=== PATIENT | male | born 1970 | race Two or more races ===

== ENCOUNTER 2021-08-13 16:31 | Emergency (ER) | payer MEDICAID ==
[~2021-08-13] VITALS: Ht 177.8 cm; Wt 109.3 kg
--- NOTE | 2021-08-13 16:50 | NUR ---
PT CAME TO ER C/O "MY R INDEX FINGER IS NUMB" SINCE THIS MORNING. DENIES HX OF CERVICAL SPINE INJURY. PT ALSO REPORTS BILATERAL FEET/ANKLE SWELLING SINCE 2-3 DAYS AGO. DENIES HX OF CARDIAC DISORDERS. HX OF DM FOR 13 YEARS, L VITRECTOMY 9 YEARS AGO. A&OX4, BREAHING EVEN AND UNLABORED, PULSES 1+ BILATERALLY. ABLE TO DISTINGUISH SOFT AND SHARP TOUCH TO R INDEX FINGER. NOTABLE SWELLING IN BILATERAL FEET/ANKLES. STANLEY BETWEEN TOES AND ON L MEDIAL ANKLE. ATTACHED TO MONITOR. Addendum: 08/13/21 at 1717 by RICHARD PTP DENIES SOB, CHEST PAIN
--- NOTE | 2021-08-13 17:16 | NUR ---
RADIOLOGY AT BEDSIDE
--- NOTE | 2021-08-13 17:33 | NUR ---
BLOOD SAMPLE OBTAINED AND SENT TO LAB
[2021-08-13] MEDS ORDERED: INSU100V7 SQ (17:40)
[2021-08-13] MEDS ORDERED: ATOR40TA PO (17:40)
[2021-08-13] MEDS ORDERED: ASPI-1169 PO (17:40)
[2021-08-13] MEDS ORDERED: AMLO1TAB12 PO (17:40)
[2021-08-13] MEDS ORDERED: INSU100I4 SQ (17:40)
[2021-08-13 17:47] LABS: BASOPHILS % (AUTO) 0.4 % (0.0-2.0); EOSINOPHILS % (AUTO) 2.4 % (0.0-6.0); HEMATOCRIT 39 % (39-51); HEMOGLOBIN 13.2 g/dL (13.5-17.5); LYMPHOCYTES # (AUTO) 1.8 K/uL (0.8-4.8); LYMPHOCYTES % (AUTO) 18.1 % (20.0-44.0); MEAN CORPUSCULAR HGB CONC 34 g/dl (31.0-36.0); MEAN CORPUSCULAR VOLUME 85 fL (80-96); MONOCYTES % (AUTO) 9.4 % (2.0-12.0); NEUTROPHILS % (AUTO) 69.7 % (43.0-81.0); PLATELET COUNT (AUTO) 267 K/uL (150-450); RED BLOOD CELL COUNT(AUTO) 4.63 MIL/uL (4.5-6.0); WHITE BLOOD COUNT (AUTO) 10.1 K/uL (4.3-11.0)
--- NOTE | 2021-08-13 17:56 | NUR ---
QUALITY MEASUREMENT SPECIALIST AT BEDSIDE
[2021-08-13 17:58] LABS: CALCIUM, SERUM 8.9 mg/dL (8.5-10.1); CREATININE 1.8 mg/dL (0.6-1.3); POTASSIUM 3.9 mmol/L (3.5-5.1)
[2021-08-13 18:04] LABS: ALBUMIN 2.7 g/dL (3.4-5.0); BILIRUBIN,DIRECT 0.1 mg/dL (0.0-0.2); BILIRUBIN,TOTAL 0.3 mg/dL (0.2-1.0); TOTAL PROTEIN, SERUM 7.5 g/dL (6.4-8.2)
[2021-08-13] MEDS ORDERED: ENOXAPARIN SODIUM 100 MG/ML DISP.SYRIN SQ ONE (18:30)
[2021-08-13] MEDS ORDERED: VANCOMYCIN 1 GM in IV D5W 250 ML IV ONE (18:30)
[2021-08-13] MEDS ORDERED: VANCOMYCIN 1 GM VIAL ONE (18:44)
[2021-08-13] MEDS ORDERED: ASPIRIN EC 81 MG TABLET.DR PO ONE (18:45)
[2021-08-13] MEDS ORDERED: ASPIRIN 81 MG TAB.CHEW PO ONE (19:00)
--- NOTE | 2021-08-13 19:29 | NUR ---
Patient does not wish to proceed with medical care recommended by Dr. Castro. Patient given information related to possible complications, up to and including , which could occur as a result of leaving the hospital at this time. Patient verbalizes understanding of risks involved due to leaving against medical advice. Patient has signed AMA form.
--- NOTE | 2021-08-13 19:29 | NUR ---
PT LEFT AMA DURING ANTIBIOTIC TREATMENT. HALF OF THE 250ML BAG WAS COMPLETED. PAT YAN AWARE.
[2021-08-13 19:46] VITALS: BP 132/73
== END 2021-08-13 19:29 | disposition left against medical advice (07) ==
LOC: ER 16:33
DX: I21.4 Non-ST elevation (NSTEMI) myocardial infarction (principal); M86.9 Osteomyelitis, unspecified; N17.9 Acute kidney failure, unspecified; R60.0 Localized edema; E11.9 Type 2 diabetes mellitus without complications; Z79.899 Other long term (current) drug therapy; Z79.82 Long term (current) use of aspirin; Z79.4 Long term (current) use of insulin
CPT/HCPCS: 36415; 71045; 73630; 80048; 80076; 82962; 83880; 84484; 85025; 87040 ×2; 93005; 93970; 96365; 99285; J3370

== ENCOUNTER 2021-08-14 17:06 | Emergency (ER) | payer MEDICAID ==
[~2021-08-14 17:06] MED LIST: AMLO1TAB12 PO; ASPI-1169 PO; ATOR40TA PO; INSU100I4 SQ; INSU100V7 SQ
--- NOTE | 2021-08-14 17:32 | NUR ---
CALLED TO TRIAGE,NO ANSWER
--- NOTE | 2021-08-14 18:11 | NUR ---
CALLED IN ED WAITING ROOM NO RESPONSE.
--- NOTE | 2021-08-14 19:17 | NUR ---
LEFT ED WITHOUT BEING SEEN
== END 2021-08-14 19:22 | disposition left against medical advice (07) ==
LOC: ER 18:23
DX: Z53.21 Procedure and treatment not carried out due to patient leaving prior to being seen by health care provider (principal)

== ENCOUNTER 2021-08-19 08:26 | Inpatient (IN) | payer SELFPAY ==
[~2021-08-19] VITALS: Ht 170.2 cm; Wt 108.9 kg
--- NOTE | 2021-08-19 08:35 | NUR ---
DR JOHNSON AT BEDSIDE
--- NOTE | 2021-08-19 08:38 | NUR ---
EKG BEING DONE AT BEDSIDE
--- NOTE | 2021-08-19 08:42 | NUR ---
PT CAME TO ER C/O WORSENING BLE SWELLING X 5 DAYS. ADMITS FEVER LAST NIGHT WHICH WAS REDUCED BY ADVIL. DENIES NAUSEA. ADMITS VOMITING AFTER TAKING ADVIL. AAOX4, AMBULATORY, BREATHING EVEN AND UNLABORED, BILATERAL LOWER EXTREMITY SWELLING WITH ERYTHEMA. ON MONITOR. TACHYCARDIC HR 110.
[2021-08-19] MEDS ORDERED: SULF1TAB48 PO (08:58)
[2021-08-19] MEDS ORDERED: PIPERACILLIN /TAZOBACTAM 3.375 G in IV D5W 50 ML IV ONE (09:00)
[2021-08-19] MEDS ORDERED: VANCOMYCIN 1 GM in IV D5W 250 ML IV ONE (09:00)
[2021-08-19 09:17] LABS: CALCIUM, SERUM 8.7 mg/dL (8.5-10.1); CARBON DIOXIDE 25 mmol/L (21-32); CHLORIDE 94 mmol/L (98-107); CREATININE 1.8 mg/dL (0.6-1.3); GLUCOSE 274 mg/dL (74-106); POTASSIUM 3.6 mmol/L (3.5-5.1); SODIUM SERUM 131 mmol/L (136-145); UREA NITROGEN, BLOOD 22 mg/dL (7-18)
--- NOTE | 2021-08-19 09:20 | NUR ---
PT UNABLE TO PROVIDE URINE SAMPLE. WILL TRY TO OBTAIN AGAIN.
--- NOTE | 2021-08-19 09:21 | NUR ---
MOVE SHEET SUBMITTED AND CALLED FOR BED.
[2021-08-19 09:23] LABS: ALANINE AMINOTRANSFERASE 45 U/L (12-78); ALBUMIN 2.6 g/dL (3.4-5.0); ALKALINE PHOSPHATASE 298 U/L (46-116); ASPARTATE AMINOTRANSFERASE 23 U/L (15-37); BILIRUBIN,DIRECT 0.2 mg/dL (0.0-0.2); BILIRUBIN,TOTAL 0.5 mg/dL (0.2-1.0); TOTAL PROTEIN, SERUM 8.7 g/dL (6.4-8.2)
--- NOTE | 2021-08-19 09:24 | NUR ---
RADIOLOGY AT BEDSIDE
[2021-08-19 09:28] LABS: BASOPHILS # (AUTO) 0.1 K/uL (0.0-0.2); BASOPHILS % (AUTO) 0.7 % (0.0-2.0); EOSINOPHILS % (AUTO) 1.3 % (0.0-6.0); HEMATOCRIT 40 % (39-51); HEMOGLOBIN 12.9 g/dL (13.5-17.5); LYMPHOCYTES # (AUTO) 2.4 K/uL (0.8-4.8); LYMPHOCYTES % (AUTO) 13.1 % (20.0-44.0); MEAN CORPUSCULAR HGB CONC 33 g/dl (31.0-36.0); MEAN CORPUSCULAR VOLUME 86 fL (80-96); MONOCYTES % (AUTO) 5.5 % (2.0-12.0); NEUTROPHILS # (AUTO) 14.7 K/uL (1.8-8.9); NEUTROPHILS % (AUTO) 79.4 % (43.0-81.0); PLATELET COUNT (AUTO) 487 K/uL (150-450); RED BLOOD CELL COUNT(AUTO) 4.64 MIL/uL (4.5-6.0); WHITE BLOOD COUNT (AUTO) 18.5 K/uL (4.3-11.0)
--- NOTE | 2021-08-19 09:30 | NUR ---
ABNORMAL LAB LACTIC ACID 2.6. DR JOHNSON AWARE.
--- NOTE | 2021-08-19 10:05 | NUR ---
GLUCOSE 238. NOTIFIED Addendum: 08/19/21 at 1137 by RICHARD CORRECTION: GLUCOSE 283
--- NOTE | 2021-08-19 10:17 | NUR ---
COVID SWAB DONE AND SENT TO LAB
[2021-08-19] MEDS ORDERED: IV NS 0.9% 1,000 ML BAG IV ONE (10:30)
[2021-08-19] MEDS ORDERED: ONDANSETRON HCL/PF 4 MG/2 ML VIAL ONE (10:56)
[2021-08-19] MEDS ORDERED: ONDANSETRON HCL/PF - ER 4 MG/2 ML VIAL IV ONE (11:00)
--- NOTE | 2021-08-19 11:30 | NUR ---
room 308-1
[2021-08-19 11:40] LABS: BILIRUBIN,URINE SMALL (NEGATIVE); COLOR,URINE DARK YELLOW (YELLOW); LEUKOCYTE ESTERASE ,URINE Negative (NEGATIVE); NITRITE, URINE Negative (NEGATIVE); PH,URINE 5.5 (5.0-8.0); PROTEIN,URINE 100 mg/dl (NEGATIVE); UGLUCOSE >=1000 mg/dL (NEGATIVE)
[2021-08-19 11:57] LABS: BACTERIA,URINE Few /HPF (None Seen); WBC,URINE 0-2 /HPF (0-3)
[2021-08-19 12:00] VITALS: BP 146/73
--- NOTE | 2021-08-19 12:00 | NUR ---
Report given to floor LORIE Herrera for continuation of care.
[2021-08-19 12:30] VITALS: BP 146/73
[2021-08-19] MEDS ORDERED: ONDANSETRON HCL/PF 4 MG/2 ML VIAL IVP PRN (12:30)
[2021-08-19] MEDS ORDERED: Z GUARD REMEDY 2 OZ OINT TP PRN (12:30)
[2021-08-19] MEDS ORDERED: MAGNESIUM HYDROXIDE 30 ML UDC PO PRN (12:30)
[2021-08-19] MEDS ORDERED: ZOLPIDEM TARTRATE 5 MG TABLET PO PRN (12:30)
[2021-08-19] MEDS ORDERED: CEFTRIAXONE 1 G in IV D5W 50 ML IV SCH (12:30)
[2021-08-19] MEDS ORDERED: DEXTROSE 50%-WATER 50 ML DISP.SYRIN IV PRN (12:30)
[2021-08-19] MEDS ORDERED: HYDROCODONE/APAP 5/325MG TABLET PO PRN (12:30)
--- NOTE | 2021-08-19 12:30 | NUR ---
m/s criminal profiler: admission admitted this 50 year old male pt from e. with dx: possible left 2nd toe osteomyelitis with poor hygiene to upper and lower ext's. pt is alert and oriented x4 with anxiousness. oriented to room and surroundings. dr. story admitting. orders acknowledged. noted left foot with redness and swelling and left 2nd toe sole with black eschar. for wound consult. per dr. millan no podiatry consult at this time. cn aware. noted with temp of 100.4 and tachycardia at 110. tylenol 650mg po given at 1330. dr. millan made aware and per md to continue to monitor. will continue to monitor.
[2021-08-19] MEDS: ACETAMINOPHEN 325 MG TABLET PO PRN (13:10)
[2021-08-19] MEDS: VALSARTAN 80 MG TABLET PO SCH (13:14)
[2021-08-19] MEDS ORDERED: VANCOMYCIN 1.5 GM in IV D5W 500 ML IV ONE (14:00)
--- NOTE | 2021-08-19 14:00 | NUR ---
m/s port crane operator: notes re check temp 101.1 (o). dr. millan notified and made aware. will continue to monitor.
[2021-08-19 14:16] VITALS: BP 135/66
--- NOTE | 2021-08-19 15:30 | NUR ---
m/s technical sales director: notes re check temp 99.2 (o). no distress noted. will continue to monitor.
[2021-08-19 16:00] VITALS: BP 140/74
[2021-08-19] MEDS: ENOXAPARIN SODIUM 40 MG/0.4 ML DISP.SYRIN SQ SCH (16:27)
--- NOTE | 2021-08-19 16:45 | NUR ---
m/s side stapler: notes pt getting nervous as stated and wants his right ac iv remove. iv removed to rac with tip intact. instructed to call for assistance.
[2021-08-19] MEDS: BLOOD SUGAR DIAGNOSTIC 1 EACH STRIP VI SCH ×2 (17:13→21:43)
[2021-08-19] MEDS: INSULIN REGULAR, HUMAN 100 UNIT/ML 3 ML VIAL SQ PRN (17:24)
--- NOTE | 2021-08-19 18:35 | NUR ---
m/s coal carrier: notes resting quietly in bed with no distress noted. needs attended. call light within reach. will continue to monitor.
--- NOTE | 2021-08-19 19:15 | NUR ---
m/s hospital aide: notes bedside report given to josselin (rn) for continuity of care.
--- NOTE | 2021-08-19 19:30 | NUR ---
MS RN OPENING NOTES PATIENT RESTING IN BED, ALERT/ORIENTED X 4, PT ABLE TO MAKE NEEDS KNOWN. PT STABLE ON RA, NO S/S OF DISTRESS OR SOB NOTED, BREATHING EVEN AND UNLABORED. IV ACCESS ON LEFT AC #20G INTACT AND FLUSHING WELL. NO REPORTS OF PAIN AT THIS TIME. SAFETY MEASURES IN PLACE: CALL LIGHT WITHIN REACH, SIDE RAILS UP X 2, BED LOCKED IN LOW POSITION, BED ALARM ON. WILL CONTINUE TO MONITOR PATIENT
[2021-08-19 20:00] VITALS: BP 131/59
[2021-08-19] MEDS: VANCOMYCIN 0.75 GM in IV D5W 250 ML IV SCH (21:20)
[2021-08-19] MEDS: MAG HYDROX/AL HYDROX/SIMETH 30 ML UDC PO PRN (21:47)
[2021-08-19] MEDS: INSULIN GLARGINE, 100 UNIT/ML CARTRIDGE SQ SCH (21:47)
--- NOTE | 2021-08-19 21:50 | NUR ---
MS RN NOTE PATIENT REPORTING HEART BURN. MAALOX 30 ML PO GIVEN ORDERED. WILL CONTINUE TO MONITOR PATIENT
--- NOTE | 2021-08-19 22:00 | NUR ---
MS RN NOTE PATIENT REPORTING NAUSEA AND EMESIS X 1. ZOFRAN 4 MG IV GIVEN ORDERED. WILL CONTINUE TO MONITOR PATIENT
[2021-08-19] MEDS: *INSULIN REGULAR(HUMULIN R)HUM 100 UNIT/ML VIAL SQ PRN (22:05)
[2021-08-20] MEDS ORDERED: VANCOMYCIN 0.75 GM in IV D5W 250 ML IV SCH (02:00)
--- NOTE | 2021-08-20 06:26 | NUR ---
MS RN CLOSING NOTES PATIENT SLEEPING IN BED, EASILY AWAKENED, ALERT/ORIENTED X 4. PT STABLE ON RA, NO S/S OF DISTRESS OR SOB NOTED, BREATHING EVEN AND UNLABORED. IV ACCESS ON LEFT AC INTACT AND SALINE LOCKED. MEDICATIONS GIVEN ORDERED, PT NEEDS MET THROUGHOUT SHIFT. NO MORE NAUSEA/VOMITING REPORTED THE REST OF SHIFT. SAFETY MEASURES IN PLACE: CALL LIGHT WITHIN REACH, SIDE RAILS UP X 2, BED LOCKED IN LOW POSITION, BED ALARM ON. WILL ENDORSE TO DAY SHIFT NURSE FOR CONTINUITY OF CARE
[2021-08-20 06:38] LABS: BASOPHILS # (AUTO) 0.1 K/uL (0.0-0.2); BASOPHILS % (AUTO) 0.4 % (0.0-2.0); EOSINOPHILS % (AUTO) 1.4 % (0.0-6.0); HEMATOCRIT 33 % (39-51); LYMPHOCYTES # (AUTO) 1.7 K/uL (0.8-4.8); LYMPHOCYTES % (AUTO) 9.9 % (20.0-44.0); MEAN CORPUSCULAR HGB CONC 33 g/dl (31.0-36.0); MEAN CORPUSCULAR VOLUME 85 fL (80-96); MONOCYTES # (AUTO) 1.1 K/uL (0.1-1.30); MONOCYTES % (AUTO) 6.7 % (2.0-12.0); NEUTROPHILS # (AUTO) 13.7 K/uL (1.8-8.9); NEUTROPHILS % (AUTO) 81.6 % (43.0-81.0); PLATELET COUNT (AUTO) 396 K/uL (150-450); RED BLOOD CELL COUNT(AUTO) 3.91 MIL/uL (4.5-6.0); WHITE BLOOD COUNT (AUTO) 16.8 K/uL (4.3-11.0)
[2021-08-20 06:49] LABS: CALCIUM, SERUM 8.1 mg/dL (8.5-10.1); CREATININE 1.8 mg/dL (0.6-1.3); MAGNESIUM 2.1 mg/dL (1.8-2.4); PHOSPHORUS 2.4 mg/dL (2.5-4.9); POTASSIUM 4.2 mmol/L (3.5-5.1)
[2021-08-20] MEDS: BLOOD SUGAR DIAGNOSTIC 1 EACH STRIP VI SCH ×4 (06:52→21:38)
[2021-08-20 06:54] LABS: THYROID STIMULATING HORMONE 0.201 uIU/mL (0.358-3.74)
[2021-08-20] MEDS: INSULIN REGULAR, HUMAN 100 UNIT/ML 3 ML VIAL SQ PRN ×3 (06:55→17:35)
--- NOTE | 2021-08-20 07:30 | NUR ---
received pt. in am alert and oriented x4.no distress.vs stable.
--- NOTE | 2021-08-20 08:26 | NUR ---
WOUND CARE CONSULT: PT PRESENTS WITH LEFT 2ND TOE CRUSTED WOUND, REDNESS AND SWELLING TO FOOT AND CALLUS TO RT GREAT TOE, PRESENT ON ADMISSION. DR CONTRERAS NOTIFIED OF DPM CONSULT REQUEST. PT IS AMBULATORY (VERY SLOW GAIT) AND CONTINENT. MD IN AGREEMENT WITH PLAN OF CARE.
[2021-08-20 08:37] VITALS: BP 136/86
[2021-08-20] MEDS ORDERED: CEFEPIME 1 GM in IV D5W 50 ML IV SCH (09:00)
[2021-08-20] MEDS: PANTOPRAZOLE 40 MG TABLET.DR PO SCH (09:16)
[2021-08-20] MEDS: ATORVASTATIN 40 MG TABLET PO SCH (09:17)
[2021-08-20] MEDS: VALSARTAN 80 MG TABLET PO SCH (09:17)
[2021-08-20] MEDS: ASPIRIN 81 MG TAB.CHEW PO SCH (09:17)
[2021-08-20] MEDS: AMLODIPINE BESYLATE 5 MG TABLET PO SCH (09:18)
[2021-08-20] MEDS: ENOXAPARIN SODIUM 40 MG/0.4 ML DISP.SYRIN SQ SCH (09:22)
[2021-08-20] MEDS: VANCOMYCIN 0.75 GM in IV D5W 250 ML IV SCH ×2 (09:41→21:36)
[2021-08-20] MEDS: CEFEPIME 2 GM in IV D5W 100 ML IV SCH ×2 (11:18→20:27)
--- NOTE | 2021-08-20 12:10 | NUR ---
dr blackmon here and debridement done of lt. ft. culture sent.
--- NOTE | 2021-08-20 12:30 | NUR ---
dr. conley here to see pt.
[2021-08-20] MEDS ORDERED: K PHOS NEUTRAL 250 MG TABLET PO ONE (14:00)
[2021-08-20 16:00] VITALS: BP 154/83
[2021-08-20] MEDS: ACETAMINOPHEN 325 MG TABLET PO PRN (16:30)
--- NOTE | 2021-08-20 16:38 | NUR ---
temp right now on pt. 102.9.orally.given tylenol 650 mg po.call out to [facility] md dr. conley.
--- NOTE | 2021-08-20 17:14 | NUR ---
spoke with dr. conley-aware of fever.no new orders.states id nurse pebbles on the case.
--- NOTE | 2021-08-20 18:23 | NUR ---
rn here to insert picc line.
--- NOTE | 2021-08-20 18:53 | NUR ---
picc line placed rt. upper arm,chest done.picc line rn verified ok to use.
--- NOTE | 2021-08-20 19:30 | NUR ---
MS RN OPENING NOTES PT AWAKE IN BED, ALERT/ORIENTED X 4, PT ABLE TO MAKE NEEDS KNOWN. NO COMPLAINTS OF PAIN AT THIS TIME. RIGHT UPPER ARM PICC LINE INTACT AND FLUSHING WELL. LEFT AC IV ACCESS ALSO INTACT AND SALINE LOCKED. DRESSING ON LEFT FOOT CLEAN, DRY AND INTACT. SAFETY MEASURES IN PLACE: CALL LIGHT WITHIN REACH, SIDE RAILS UP X 2, BED LOCKED IN LOW POSITION, BED ALARM ON. WILL CONTINUE TO MONITOR PATIENT
[2021-08-20 20:00] VITALS: BP 142/89
[2021-08-20] MEDS: MAG HYDROX/AL HYDROX/SIMETH 30 ML UDC PO PRN (20:11)
--- NOTE | 2021-08-20 20:15 | NUR ---
MS RN NOTE PT HAS TEMP OF 99.7. HOWEVER TYLENOL 650 MG Q6H PRN GIVEN 3 HOURS AGO. PLACED COOL CLOTHS ON PATIENT AND REMOVED BLANKETS. PT ALSO REPORTING HEART BURN, MAALOX GIVEN ORDERED. WILL CONTINUE TO MONITOR PATIENT
[2021-08-20] MEDS: INSULIN GLARGINE, 100 UNIT/ML CARTRIDGE SQ SCH (21:38)
[2021-08-20] MEDS: *INSULIN REGULAR(HUMULIN R)HUM 100 UNIT/ML VIAL SQ PRN (21:41)
--- NOTE | 2021-08-21 06:35 | NUR ---
MS RN CLOSING NOTES PATIENT SLEEPING IN BED, EASILY AWAKENED, ALERT/ORIENTED X 4. PT STABLE ON RA, NO S/S OF DISTRESS OR SOB NOTED, BREATHING EVEN AND UNLABORED. WILL PICC LINE INTACT AND SALINE LOCKED. MEDICATIONS GIVEN ORDERED, PT NEEDS MET THROUGHOUT SHIFT. NO SIGNIFICANT CHANGES THROUGHOUT SHIFT. PT STATED HE WANTED TO SPEAK TO CM REGARDING DISCHARGE PLANNING. SAFETY MEASURES IN PLACE: CALL LIGHT WITHIN REACH, SIDE RAILS UP X 2, BED LOCKED IN LOW POSITION, BED ALARM ON. WILL ENDORSE TO DAY SHIFT NURSE FOR CONTINUITY OF CARE
[2021-08-21 06:55] LABS: CALCIUM, SERUM 8.1 mg/dL (8.5-10.1); CREATININE 1.7 mg/dL (0.6-1.3); PHOSPHORUS 2.9 mg/dL (2.5-4.9); POTASSIUM 3.8 mmol/L (3.5-5.1)
[2021-08-21] MEDS: BLOOD SUGAR DIAGNOSTIC 1 EACH STRIP VI SCH ×4 (06:56→21:51)
[2021-08-21] MEDS: INSULIN REGULAR, HUMAN 100 UNIT/ML 3 ML VIAL SQ PRN ×3 (06:56→17:12)
--- NOTE | 2021-08-21 07:30 | NUR ---
MS RN OPENING NOTES PT AWAKE IN BED. A/O X 4. PT STABLE ON ROOM AIR. NO SOB OR S/S OF RESPIRATORY DISTRESS. RIGHT UPPER ARM PICC LINE INTACT AND PATENT. LEFT AC IV ACCESS ALSO INTACT AND SALINE LOCKED. DRESSING ON LEFT FOOT CLEAN, DRY AND INTACT. SAFETY MEASURES MAINTAINED. CALL LIGHT AND TABLE WITHIN REACH, SIDE RAILS UP X 2, BED LOCKED IN LOWEST POSITION, BED ALARM ON. WILL CONTINUE WITH PLAN OF CARE.
[2021-08-21 08:00] VITALS: BP 157/80
[2021-08-21 08:11] LABS: BASOPHILS # (AUTO) 0.2 K/uL (0.0-0.2); EOSINOPHILS % (AUTO) 2.3 % (0.0-6.0); HEMATOCRIT 33 % (39-51); HEMOGLOBIN 10.7 g/dL (13.5-17.5); LYMPHOCYTES # (AUTO) 2.4 K/uL (0.8-4.8); LYMPHOCYTES % (AUTO) 14.8 % (20.0-44.0); MEAN CORPUSCULAR HGB CONC 33 g/dl (31.0-36.0); MEAN CORPUSCULAR VOLUME 85 fL (80-96); MONOCYTES # (AUTO) 1.5 K/uL (0.1-1.30); MONOCYTES % (AUTO) 8.9 % (2.0-12.0); NEUTROPHILS # (AUTO) 11.9 K/uL (1.8-8.9); PLATELET COUNT (AUTO) 395 K/uL (150-450); RED BLOOD CELL COUNT(AUTO) 3.84 MIL/uL (4.5-6.0); WHITE BLOOD COUNT (AUTO) 16.4 K/uL (4.3-11.0)
[2021-08-21] MEDS: ASPIRIN 81 MG TAB.CHEW PO SCH (08:12)
[2021-08-21] MEDS: PANTOPRAZOLE 40 MG TABLET.DR PO SCH (08:18)
[2021-08-21] MEDS: ATORVASTATIN 40 MG TABLET PO SCH (08:20)
[2021-08-21] MEDS: AMLODIPINE BESYLATE 5 MG TABLET PO SCH (08:20)
[2021-08-21] MEDS: ENOXAPARIN SODIUM 40 MG/0.4 ML DISP.SYRIN SQ SCH (08:20)
[2021-08-21] MEDS: VALSARTAN 80 MG TABLET PO SCH (08:20)
[2021-08-21] MEDS: CEFEPIME 2 GM in IV D5W 100 ML IV SCH ×2 (08:21→20:55)
[2021-08-21] MEDS: INSULIN GLARGINE, 100 UNIT/ML CARTRIDGE SQ SCH ×2 (08:24→21:50)
[2021-08-21] MEDS: VANCOMYCIN 0.75 GM in IV D5W 250 ML IV SCH ×2 (09:24→21:49)
[2021-08-21] MEDS ORDERED: IV NS 0.9% 250 ML IV ONE (13:39)
[2021-08-21] MEDS ORDERED: IOHEXOL-350 100 ML VIAL IV ONE (13:39)
[2021-08-21 16:00] VITALS: BP 142/74
--- NOTE | 2021-08-21 18:21 | NUR ---
MS RN CLOSING NOTES PT AWAKE IN BED. A/O X 4. PT STABLE ON ROOM AIR. NO SOB OR S/S OF RESPIRATORY DISTRESS. RIGHT UPPER ARM PICC LINE INTACT AND PATENT. LEFT AC IV ACCESS ALSO INTACT AND SALINE LOCKED. DRESSING ON LEFT FOOT CLEAN, DRY AND INTACT. ALL NEEDS MET AT THIS TIME. SAFETY MEASURES MAINTAINED AT ALL TIMES. CALL LIGHT AND TABLE WITHIN REACH, SIDE RAILS UP X 2, BED LOCKED IN LOWEST POSITION, BED ALARM ON. WILL ENDORSE TO ONCOMING NURSE FOR YONATAN.
--- NOTE | 2021-08-21 19:30 | NUR ---
MS RN OPENING NOTES PATIENT AWAKE IN BED, ALERT/ORIENTED X 4, PT ABLE TO MAKE NEEDS KNOWN. PT STABLE ON RA, NO S/S OF DISTRESS OR SOB NOTED, BREATHING EVEN AND UNLABORED. PT DENIES PAIN AT THIS TIME. DRESSING ON LEFT FOOT CLEAN, DRY AN INTACT. WILL PICC LINE INTACT AND FLUSHING WELL, SALINE LOCKED. SAFETY MEASURES IN PLACE: CALL LIGHT WITHIN REACH, SIDE RAILS UP X 2, BED LOCKED IN LOW POSITION, BED ALARM ON. WILL CONTINUE TO MONITOR PATIENT
[2021-08-21] MEDS: ACETAMINOPHEN 325 MG TABLET PO PRN (20:55)
--- NOTE | 2021-08-21 20:55 | NUR ---
MS RN NOTE PATIENT HAS TEMP OF 99.0. TYLENOL 650 MG GIVEN. WILL CONTINUE TO MONITOR PATIENT
[2021-08-21] MEDS: *INSULIN REGULAR(HUMULIN R)HUM 100 UNIT/ML VIAL SQ PRN (21:52)
[2021-08-22] MEDS: BLOOD SUGAR DIAGNOSTIC 1 EACH STRIP VI SCH ×4 (06:32→21:53)
[2021-08-22] MEDS: INSULIN REGULAR, HUMAN 100 UNIT/ML 3 ML VIAL SQ PRN ×3 (06:33→16:34)
--- NOTE | 2021-08-22 06:36 | NUR ---
MS RN CLOSING NOTES PATIENT SLEEPING IN BED, EASILY AWAKENED, ALERT/ORIENTED X 4. PT STABLE ON RA, NO S/S OF DISTRESS OR SOB NOTED, BREATHING EVEN AND UNLABORED. WILL PICC LINE INTACT AND SALINE LOCKED. MEDICATIONS GIVEN ORDERED, PT NEEDS MET THROUGHOUT SHIFT. NO SIGNIFICANT CHANGES THROUGHOUT SHIFT. WOUND CARE PERFORMED THIS AM. SAFETY MEASURES IN PLACE: CALL LIGHT WITHIN REACH, SIDE RAILS UP X 2, BED LOCKED IN LOW POSITION, BED ALARM ON. WILL ENDORSE TO DAY SHIFT NURSE FOR CONTINUITY OF CARE
--- NOTE | 2021-08-22 07:18 | NUR ---
MS RN OPENING NOTES RECEIVED PATIENT AWAKE IN BED, ALERT/ORIENTED X 4, PT ABLE TO MAKE NEEDS KNOWN. PT IS BREATHING EVENLY AND NONLABORED STABLE ON RA, NO S/S OF DISTRESS OR SOB NOTED PT DENIES PAIN AT THIS TIME. DRESSING ON LEFT FOOT CLEAN, DRY AN INTACT. WILL PICC LINE INTACT AND FLUSHING WELL, SALINE LOCKED. SAFETY MEASURES IN PLACE: CALL LIGHT WITHIN REACH, SIDE RAILS UP X 2, BED LOCKED IN LOW POSITION, BED ALARM ON. WILL CONTINUE TO MONITOR
[2021-08-22 07:30] LABS: ALBUMIN 1.8 g/dL (3.4-5.0); BILIRUBIN,TOTAL 0.4 mg/dL (0.2-1.0); CALCIUM, SERUM 7.8 mg/dL (8.5-10.1); CREATININE 1.7 mg/dL (0.6-1.3)
[2021-08-22 07:39] LABS: BASOPHILS # (AUTO) 0.1 K/uL (0.0-0.2); BASOPHILS % (AUTO) 0.4 % (0.0-2.0); EOSINOPHILS % (AUTO) 3.7 % (0.0-6.0); HEMATOCRIT 34 % (39-51); LYMPHOCYTES % (AUTO) 15.5 % (20.0-44.0); MEAN CORPUSCULAR HGB CONC 33 g/dl (31.0-36.0); MEAN CORPUSCULAR VOLUME 85 fL (80-96); MONOCYTES % (AUTO) 7.5 % (2.0-12.0); NEUTROPHILS # (AUTO) 9.3 K/uL (1.8-8.9); NEUTROPHILS % (AUTO) 72.9 % (43.0-81.0); PLATELET COUNT (AUTO) 405 K/uL (150-450); RED BLOOD CELL COUNT(AUTO) 3.94 MIL/uL (4.5-6.0); WHITE BLOOD COUNT (AUTO) 12.7 K/uL (4.3-11.0)
[2021-08-22 08:00] VITALS: BP 141/66
[2021-08-22] MEDS: MAG HYDROX/AL HYDROX/SIMETH 30 ML UDC PO PRN (08:01)
[2021-08-22] MEDS: PANTOPRAZOLE 40 MG TABLET.DR PO SCH (08:01)
[2021-08-22] MEDS: ASPIRIN 81 MG TAB.CHEW PO SCH (08:01)
[2021-08-22] MEDS: ATORVASTATIN 40 MG TABLET PO SCH (08:01)
[2021-08-22] MEDS: CEFEPIME 2 GM in IV D5W 100 ML IV SCH ×2 (08:01→21:33)
[2021-08-22] MEDS: AMLODIPINE BESYLATE 5 MG TABLET PO SCH (08:01)
[2021-08-22] MEDS: VALSARTAN 80 MG TABLET PO SCH (08:02)
[2021-08-22] MEDS: INSULIN GLARGINE, 100 UNIT/ML CARTRIDGE SQ SCH (08:04)
[2021-08-22] MEDS: ENOXAPARIN SODIUM 40 MG/0.4 ML DISP.SYRIN SQ SCH (08:04)
[2021-08-22] MEDS ORDERED: VALSARTAN 80 MG TABLET PO SCH (09:00)
[2021-08-22] MEDS ORDERED: INSULIN GLARGINE, 100 UNIT/ML CARTRIDGE SQ SCH ×2 (09:00→21:00)
[2021-08-22] MEDS: VANCOMYCIN 0.75 GM in IV D5W 250 ML IV SCH ×2 (09:03→22:22)
[2021-08-22] MEDS ORDERED: VALSARTAN 80 MG TABLET PO ONE (09:30)
[2021-08-22] MEDS ORDERED: INSULIN GLARGINE, 100 UNIT/ML CARTRIDGE SQ ONE (09:30)
[2021-08-22 16:00] VITALS: BP 144/75
--- NOTE | 2021-08-22 18:34 | NUR ---
MS RN CLOSING NOTES PATIENT AWAKE IN BED, ALERT/ORIENTED X 4, PT ABLE TO MAKE NEEDS KNOWN. PT IS BREATHING EVENLY AND NONLABORED STABLE ON RA, NO S/S OF DISTRESS OR SOB NOTED PT DENIES PAIN AT THIS TIME. DRESSING ON LEFT FOOT CLEAN, DRY AN INTACT. WOUND CARE PERFORMED DURING SHIFT. WILL PICC LINE INTACT AND FLUSHING WELL, SALINE LOCKED. ALL MEDICATIONS GIVEN ORDERED. SAFETY MEASURES IN PLACE: CALL LIGHT WITHIN REACH, SIDE RAILS UP X 2, BED LOCKED IN LOW POSITION, BED ALARM ON. WILL ENDORSE TO ONCOMING SHIFT
--- NOTE | 2021-08-22 19:15 | NUR ---
NO DRESSING ON THE LEFT FOOT, ON THE FLOOR. WILL COVER FOOT A NEW DRESSING.
--- NOTE | 2021-08-22 19:15 | NUR ---
MS RN OPENING NOTES: RECEIVED PATIENT IN BED AWAKE, A/O X4. NO S/S OF DISTRESS NOTED. NO COMPLAIN OF PAIN. CALL LIGHT WITHIN REACH. BED IN LOWEST AND LOCKED POSITION.
[2021-08-22 20:00] VITALS: BP 151/68
[2021-08-22] MEDS: *INSULIN REGULAR(HUMULIN R)HUM 100 UNIT/ML VIAL SQ PRN (21:59)
[2021-08-23] MEDS: INSULIN REGULAR, HUMAN 100 UNIT/ML 3 ML VIAL SQ PRN ×2 (06:40→11:07)
[2021-08-23 06:58] LABS: ALBUMIN 1.8 g/dL (3.4-5.0); BILIRUBIN,TOTAL 0.3 mg/dL (0.2-1.0); CALCIUM, SERUM 8.1 mg/dL (8.5-10.1); CREATININE 2.2 mg/dL (0.6-1.3); POTASSIUM 4.1 mmol/L (3.5-5.1); TOTAL PROTEIN, SERUM 6.9 g/dL (6.4-8.2)
[2021-08-23 07:01] LABS: BASOPHILS % (AUTO) 0.4 % (0.0-2.0); EOSINOPHILS % (AUTO) 3.7 % (0.0-6.0); HEMATOCRIT 33 % (39-51); HEMOGLOBIN 10.7 g/dL (13.5-17.5); LYMPHOCYTES # (AUTO) 1.8 K/uL (0.8-4.8); MEAN CORPUSCULAR HGB CONC 33 g/dl (31.0-36.0); MEAN CORPUSCULAR VOLUME 84 fL (80-96); MONOCYTES # (AUTO) 0.8 K/uL (0.1-1.30); MONOCYTES % (AUTO) 7.2 % (2.0-12.0); NEUTROPHILS # (AUTO) 8.4 K/uL (1.8-8.9); NEUTROPHILS % (AUTO) 72.7 % (43.0-81.0); PLATELET COUNT (AUTO) 403 K/uL (150-450); RED BLOOD CELL COUNT(AUTO) 3.88 MIL/uL (4.5-6.0); WHITE BLOOD COUNT (AUTO) 11.5 K/uL (4.3-11.0)
[2021-08-23 07:03] LABS: CALCIUM, SERUM 8.3 mg/dL (8.5-10.1); CREATININE 2.2 mg/dL (0.6-1.3); MAGNESIUM 2.4 mg/dL (1.8-2.4); PHOSPHORUS 3.3 mg/dL (2.5-4.9)
[2021-08-23] MEDS: BLOOD SUGAR DIAGNOSTIC 1 EACH STRIP VI SCH ×4 (07:30→21:32)
--- NOTE | 2021-08-23 07:42 | NUR ---
RN OPENING NOTE RECEIVED PATIENT SITTING IN THE CHAIR. A/O X4. ABLE TO MAKE NEEDS KNOWN. ON ROOM AIR, NO SOB NOTED. IN NO APPRENT DISTRESS. IV ACCESS ON WILL PICC LINE, INTACT AND PATENT. SAFETY MEASURES MAINTAINED. BED IN LOWEST POSITION, BRAKES LOCKED. SIDE RAILS UP X2. CALL LIGHT WITHIN REACH. WILL CONTINUE PLAN OF CARE.
[2021-08-23 08:00] VITALS: BP 144/75
[2021-08-23] MEDS: CEFEPIME 2 GM in IV D5W 100 ML IV SCH ×2 (08:24→21:22)
[2021-08-23] MEDS: VANCOMYCIN 0.75 GM in IV D5W 250 ML IV SCH (08:24)
[2021-08-23] MEDS: ATORVASTATIN 40 MG TABLET PO SCH (08:25)
[2021-08-23] MEDS: ASPIRIN 81 MG TAB.CHEW PO SCH (08:25)
[2021-08-23] MEDS: PANTOPRAZOLE 40 MG TABLET.DR PO SCH (08:25)
[2021-08-23] MEDS: VALSARTAN 80 MG TABLET PO SCH (08:26)
[2021-08-23] MEDS: ENOXAPARIN SODIUM 40 MG/0.4 ML DISP.SYRIN SQ SCH (08:27)
[2021-08-23] MEDS: AMLODIPINE BESYLATE 5 MG TABLET PO SCH (08:30)
[2021-08-23] MEDS: INSULIN GLARGINE, 100 UNIT/ML CARTRIDGE SQ SCH ×2 (08:31→21:32)
[2021-08-23 16:00] VITALS: BP 151/91
[2021-08-23] MEDS: *INSULIN REGULAR(HUMULIN R)HUM 100 UNIT/ML VIAL SQ PRN ×2 (17:07→21:28)
--- NOTE | 2021-08-23 18:23 | NUR ---
RN CLOSING NOTE PATIENT SITTING IN THE CHAIR. ON ROOM AIR, DENIES SOB. IN NO APPARENT DISTRESS. IV ACCESS ON WILL PICC LINE, INTACT AND PATENT. DUE MEDS GIVEN ORDERED. ALL NEEDS HAVE BEEN MET AND ATTENDED. SAFETY MEASURES MAINTAINED. BED IN LOWEST POSITION, BRAKES LOCKED. SIDE RAILS UP X2. KEPT CALL LIGHT WITHIN REACH. WILL ENDORSE CONTINUITY OF CARE TO ONCOMING SHIFT.
--- NOTE | 2021-08-23 19:10 | NUR ---
MS RN OPENING NOTES: RECEIVED PATIENT SITTING IN THE CHAIR, AWAKE, A/O X4. NO S/S OF DISTRESS NOTED. NO COMPLAIN OF PAIN. CALL LIGHT WITHIN REACH. BED IN LOWEST AND LOCKED POSITION. AMBULATORY, STEADY GAIT. DRESSING IS INTACT.
[2021-08-23 20:22] VITALS: BP 155/84
[2021-08-24] MEDS: INSULIN REGULAR, HUMAN 100 UNIT/ML 3 ML VIAL SQ PRN ×3 (06:44→17:36)
[2021-08-24 08:00] VITALS: BP 157/81
[2021-08-24 08:28] LABS: BASOPHILS # (AUTO) 0.1 K/uL (0.0-0.2); HEMATOCRIT 36 % (39-51); HEMOGLOBIN 11.9 g/dL (13.5-17.5); LYMPHOCYTES # (AUTO) 2.2 K/uL (0.8-4.8); LYMPHOCYTES % (AUTO) 17.8 % (20.0-44.0); MEAN CORPUSCULAR HGB CONC 33 g/dl (31.0-36.0); MEAN CORPUSCULAR VOLUME 86 fL (80-96); MONOCYTES # (AUTO) 0.7 K/uL (0.1-1.30); MONOCYTES % (AUTO) 5.5 % (2.0-12.0); NEUTROPHILS % (AUTO) 72.7 % (43.0-81.0); PLATELET COUNT (AUTO) 452 K/uL (150-450); RED BLOOD CELL COUNT(AUTO) 4.24 MIL/uL (4.5-6.0); WHITE BLOOD COUNT (AUTO) 12.4 K/uL (4.3-11.0)
[2021-08-24 08:41] LABS: ALBUMIN 2.1 g/dL (3.4-5.0); BILIRUBIN,TOTAL 0.4 mg/dL (0.2-1.0); CALCIUM, SERUM 8.4 mg/dL (8.5-10.1); CREATININE 2.1 mg/dL (0.6-1.3); POTASSIUM 4.2 mmol/L (3.5-5.1)
[2021-08-24] MEDS: BLOOD SUGAR DIAGNOSTIC 1 EACH STRIP VI SCH ×4 (10:14→21:03)
[2021-08-24] MEDS: INSULIN GLARGINE, 100 UNIT/ML CARTRIDGE SQ SCH ×2 (10:26→21:14)
[2021-08-24] MEDS: VANCOMYCIN 0.75 GM in IV D5W 250 ML IV SCH (10:39)
[2021-08-24] MEDS: ASPIRIN 81 MG TAB.CHEW PO SCH (10:39)
[2021-08-24] MEDS: VALSARTAN 80 MG TABLET PO SCH (10:41)
[2021-08-24] MEDS: AMLODIPINE BESYLATE 5 MG TABLET PO SCH (10:42)
[2021-08-24] MEDS: ATORVASTATIN 40 MG TABLET PO SCH (10:43)
[2021-08-24] MEDS: ENOXAPARIN SODIUM 40 MG/0.4 ML DISP.SYRIN SQ SCH (10:45)
[2021-08-24] MEDS: PANTOPRAZOLE 40 MG TABLET.DR PO SCH (11:04)
[2021-08-24] MEDS: CEFEPIME 2 GM in IV D5W 100 ML IV SCH ×2 (12:35→20:57)
[2021-08-24 16:00] VITALS: BP 140/72
--- NOTE | 2021-08-24 18:00 | NUR ---
pleasant,cooperative,med compliant,no c/o pain.wd. care done on lt. foot.
[2021-08-24 20:00] VITALS: BP 149/79
[2021-08-24] MEDS: *INSULIN REGULAR(HUMULIN R)HUM 100 UNIT/ML VIAL SQ PRN (21:11)
--- NOTE | 2021-08-25 05:53 | NUR ---
WOUND TREATMENT ON THE LEFT TOE- DONE.
[2021-08-25 06:14] LABS: BASOPHILS # (AUTO) 0.1 K/uL (0.0-0.2); BASOPHILS % (AUTO) 0.6 % (0.0-2.0); EOSINOPHILS % (AUTO) 3.6 % (0.0-6.0); HEMATOCRIT 34 % (39-51); HEMOGLOBIN 11.1 g/dL (13.5-17.5); LYMPHOCYTES # (AUTO) 1.9 K/uL (0.8-4.8); LYMPHOCYTES % (AUTO) 18.5 % (20.0-44.0); MEAN CORPUSCULAR HGB CONC 33 g/dl (31.0-36.0); MEAN CORPUSCULAR VOLUME 86 fL (80-96); MONOCYTES # (AUTO) 0.7 K/uL (0.1-1.30); MONOCYTES % (AUTO) 6.6 % (2.0-12.0); NEUTROPHILS # (AUTO) 7.2 K/uL (1.8-8.9); NEUTROPHILS % (AUTO) 70.7 % (43.0-81.0); PLATELET COUNT (AUTO) 433 K/uL (150-450); RED BLOOD CELL COUNT(AUTO) 3.94 MIL/uL (4.5-6.0); WHITE BLOOD COUNT (AUTO) 10.1 K/uL (4.3-11.0)
[2021-08-25] MEDS: BLOOD SUGAR DIAGNOSTIC 1 EACH STRIP VI SCH ×4 (06:34→22:03)
[2021-08-25] MEDS: INSULIN REGULAR, HUMAN 100 UNIT/ML 3 ML VIAL SQ PRN ×3 (06:41→17:34)
[2021-08-25 06:43] LABS: ALBUMIN 1.9 g/dL (3.4-5.0); BILIRUBIN,TOTAL 0.4 mg/dL (0.2-1.0); CALCIUM, SERUM 8.4 mg/dL (8.5-10.1); CREATININE 1.7 mg/dL (0.6-1.3); POTASSIUM 3.9 mmol/L (3.5-5.1); TOTAL PROTEIN, SERUM 7.5 g/dL (6.4-8.2)
--- NOTE | 2021-08-25 07:22 | NUR ---
RN OPENING NOTE RECEIVED PATIENT SLEEPING IN BED, EASILY AWAKENED. A/O X4. ON ROOM AIR, TOLERATING WELL. DENIES SOB. IN NO APPARENT DISTRESS. IV ACCESS ON WILL PICC LINE, INTACT AND PATENT. ABLE TO MAKE NEEDS KNOWN. SAFETY MEASURES MAINTAINED. BED IN LOWEST POSITION, BRAKES LOCKED. SIDE RAILS UP X2. CALL LIGHT WITHIN REACH. WILL CONTINUE PLAN OF CARE.
[2021-08-25 08:00] VITALS: BP 152/77
[2021-08-25] MEDS: ASPIRIN 81 MG TAB.CHEW PO SCH (08:36)
[2021-08-25] MEDS: VANCOMYCIN 0.75 GM in IV D5W 250 ML IV SCH (08:36)
[2021-08-25] MEDS: CEFEPIME 2 GM in IV D5W 100 ML IV SCH ×2 (08:36→21:25)
[2021-08-25] MEDS: AMLODIPINE BESYLATE 5 MG TABLET PO SCH (08:37)
[2021-08-25] MEDS: PANTOPRAZOLE 40 MG TABLET.DR PO SCH (08:37)
[2021-08-25] MEDS: ATORVASTATIN 40 MG TABLET PO SCH (08:37)
[2021-08-25] MEDS: VALSARTAN 80 MG TABLET PO SCH (08:37)
[2021-08-25] MEDS: ENOXAPARIN SODIUM 40 MG/0.4 ML DISP.SYRIN SQ SCH (08:39)
[2021-08-25] MEDS: INSULIN GLARGINE, 100 UNIT/ML CARTRIDGE SQ SCH ×2 (08:40→22:03)
--- NOTE | 2021-08-25 12:40 | NUR ---
RN NOTE RECEIVED A TELEPHONE ORDER FROM DR PETERSON. HIS ORDER WAS TO PREPARE A CONSENT FOR AORTOGRAM WITH RUN-OFF, POSSIBLE ANGIOPLASTY AND STENT PLACEMENT. TYPE AND SCREEN. KEEP THE PT ON NPO POST MIDNIGHT. BMP FOR TOMORROW MORNING. 0.9 NS TO RUN FOR 75 ML/HR. REPEAT ORDERS AND CARRIED OUT.
[2021-08-25] MEDS: IV NS 0.9% 1,000 ML IV PRN (14:16)
[2021-08-25 16:00] VITALS: BP 140/78
--- NOTE | 2021-08-25 18:43 | NUR ---
RN CLOSING NOTE PATIENT RESTING IN BED, A/O X4. ON ROOM AIR, TOLERATING WELL. DENIES SOB. IN NO APPARENT DISTRESS. IV ACCESS ON WILL PICC LINE, NS RUNNING AT 75 ML/HR, INTACT AND PATENT. DUE MEDS GIVEN ORDERED. ALL NEEDS HAVE BEEN MET AND ATTENDED. SAFETY MEASURES MAINTAINED. BED IN LOWEST POSITION, BRAKES LOCKED. SIDE RAILS UP X2. KEPT CALL LIGHT WITHIN REACH. WILL ENDORSE CONTINUITY OF CARE TO ONCOMING SHIFT.
--- NOTE | 2021-08-25 19:30 | NUR ---
MS RN NOTES RECEIVED ON BED A/O X4,BREATHING REGULAR,NOT IN ANY FORM OF DISTRESS,CONTINENT.BRP,AMBULATORY,IVF N AT 75ML/HR RATE INFUSING WELL ON WILL PICC LINE VIA IV PUMP.INSTRUCTED NPO,GOING FOR AORTOGRAM WITH RUNOFF,POSSIBLE,ANGIOPLASTY WITH STENT PLACEMENT BY DR PETERSON IN THE MORNING,CONSENT ON CHART.NOTED LEFT 2ND TOE DIABETIC ULCER,ABLE TO WALK.MONITOR FOR PAIN,CALL IN REACH,NEEDS ANTICIPATED.
[2021-08-25 20:00] VITALS: BP 144/84
[2021-08-25] MEDS: *INSULIN REGULAR(HUMULIN R)HUM 100 UNIT/ML VIAL SQ PRN (22:05)
--- NOTE | 2021-08-26 | NUR ---
MS RN NOTES STARTED NPO POST MIDNIGHT FOR THE PROCEDURE
--- NOTE | 2021-08-26 02:32 | NUR ---
MS MELO NOTES PAIN MANAGEMENT C/O ABDOMINAL PAIN 05/07 ON PAIN SCALE,MORPHINE 2MG IV GIVEN ORDERED. Addendum: 08/26/21 at 0248 by JAY BRANDON RN WRONG ENTRY OF NOTES.NOT FOR THIS PATIENT.
[2021-08-26] MEDS: BLOOD SUGAR DIAGNOSTIC 1 EACH STRIP VI SCH ×4 (05:29→22:08)
--- NOTE | 2021-08-26 05:30 | NUR ---
MS RN NOTES ACCU-CHECK BLOOD SUGAR CHECK 238,HUMULIN R 6 UNITS HELD,GOING FOR AORTOGRAM.
[2021-08-26] MEDS: INSULIN REGULAR, HUMAN 100 UNIT/ML 3 ML VIAL SQ PRN ×3 (05:37→17:15)
[2021-08-26 06:25] LABS: BASOPHILS # (AUTO) 0.1 K/uL (0.0-0.2); BASOPHILS % (AUTO) 0.9 % (0.0-2.0); EOSINOPHILS % (AUTO) 3.1 % (0.0-6.0); HEMATOCRIT 33 % (39-51); HEMOGLOBIN 11.2 g/dL (13.5-17.5); LYMPHOCYTES # (AUTO) 1.8 K/uL (0.8-4.8); LYMPHOCYTES % (AUTO) 18.3 % (20.0-44.0); MEAN CORPUSCULAR HGB CONC 34 g/dl (31.0-36.0); MEAN CORPUSCULAR VOLUME 85 fL (80-96); MONOCYTES # (AUTO) 0.7 K/uL (0.1-1.30); NEUTROPHILS # (AUTO) 7.1 K/uL (1.8-8.9); NEUTROPHILS % (AUTO) 70.7 % (43.0-81.0); PLATELET COUNT (AUTO) 435 K/uL (150-450); RED BLOOD CELL COUNT(AUTO) 3.92 MIL/uL (4.5-6.0)
[2021-08-26] MEDS ORDERED: IV NS 0.9% 1,000 ML ONE (06:35)
[2021-08-26] MEDS ORDERED: IODIXANOL 150 ML IV ONE (06:35)
[2021-08-26] MEDS ORDERED: MIDAZOLAM HCL 2 MG/2ML VIAL ONE (06:36)
[2021-08-26] MEDS ORDERED: FENTANYL PF 100MCG/2ML AMPUL ONE (06:36)
[2021-08-26 07:12] LABS: BILIRUBIN,TOTAL 0.3 mg/dL (0.2-1.0); CALCIUM, SERUM 8.1 mg/dL (8.5-10.1); CREATININE 1.5 mg/dL (0.6-1.3); POTASSIUM 4.4 mmol/L (3.5-5.1); TOTAL PROTEIN, SERUM 7.4 g/dL (6.4-8.2)
[2021-08-26] MEDS ORDERED: LIDOCAINE HCL/MPF 1% 30 ML VIAL IJ ONE (07:19)
--- NOTE | 2021-08-26 08:35 | NUR ---
tele painter helper: notes received pt from lab tester with dx: s/p right femoral access with sono, abdominal aortogram with supervision and interpretation. dressing to right femoral in place with no bleeding noted with palpable pulse. on bedrest for 6 hours and may elevate hob to 30 degrees after 3 hours, pt verbalized understanding. place pt on tele=[id number]'s. instructed to call for assistance. will continue to monitor.
[2021-08-26 08:40] VITALS: BP 141/73
[2021-08-26] MEDS: CEFEPIME 2 GM in IV D5W 100 ML IV SCH ×2 (09:08→21:37)
[2021-08-26] MEDS: ATORVASTATIN 40 MG TABLET PO SCH (09:15)
[2021-08-26] MEDS: AMLODIPINE BESYLATE 5 MG TABLET PO SCH (09:15)
[2021-08-26] MEDS: CARVEDILOL 6.25 MG TABLET PO SCH ×2 (09:15→17:13)
[2021-08-26] MEDS: ASPIRIN 81 MG TAB.CHEW PO SCH (09:15)
[2021-08-26] MEDS: PANTOPRAZOLE 40 MG TABLET.DR PO SCH (09:16)
[2021-08-26] MEDS: VALSARTAN 80 MG TABLET PO SCH (09:16)
[2021-08-26] MEDS: INSULIN GLARGINE, 100 UNIT/ML CARTRIDGE SQ SCH ×2 (09:29→22:13)
--- NOTE | 2021-08-26 09:53 | NUR ---
tele streetcar operator: notes dr. lawson notified re: vargas with order okay to resume at 1700 today. order read back and carried out.
[2021-08-26] MEDS: VANCOMYCIN 0.75 GM in IV D5W 250 ML IV SCH (09:58)
[2021-08-26 10:45] VITALS: BP 152/80
--- NOTE | 2021-08-26 10:45 | NUR ---
tele radiology receptionist: notes dressing to right femoral in place with no bleeding noted with palpable pulse. remains on bedrest. instructed to call for assistance.
--- NOTE | 2021-08-26 12:25 | NUR ---
m/s garment worker: notes seen by dr. blackmon with order to Obtain consent for <Left lower extremity excisional wound debridement with amputation of the, left 2nd toe. pt verbalized understanding and scheduled at 1100 tomorrow. pt aware of npo after midnight. all consents signed by pt. right femoral dressing remains intact with no bleeding noted. remains on bedrest. instructed to call for assistance.
--- NOTE | 2021-08-26 13:30 | NUR ---
m/s automatic clipper: notes dressing to right femoral remains in place with no bleeding noted, with palpable pulse. remains on bedrest. will continue to monitor.
--- NOTE | 2021-08-26 15:30 | NUR ---
m/s flosser: notes pt up in chair at this time. dressing to right femoral remains intact with no bleeding noted. instructed to call for assistance. will continue to monitor.
[2021-08-26] MEDS: ENOXAPARIN SODIUM 40 MG/0.4 ML DISP.SYRIN SQ SCH (17:14)
--- NOTE | 2021-08-26 19:10 | NUR ---
tele business rules developer: notes bedside report given to misty (sheryl) for continuity of care.
--- NOTE | 2021-08-26 20:01 | NUR ---
TELE NURSE OPENING NOTE PATIENT RECEIVED AWAKE IN BED, A/OX4. PATIENT APPEARS PLEASANT. PATIENT IS SR 77. RT FEMORAL S/P AORTOGRAM; AREA IS CLEAN AND WITH SIGNS OF BLEEDING. SHOWS NO S/S OF DISTRESS, BREATHING IS UNLABORED, SKIN WARM, CLEAN. WILL PICC RUNNING IVF. NO PAIN NOTED AT THIS TIME. PATIENT IS SCHEDULED FOR SURGERY TOMORROW MORNING AT ~1100; HE WILL BE HAVING HIS LEFT SECOND TOE REMOVED D/T DM ULCER. WILL CONTINUE TO MONITOR PATIENT THROUGHOUT SHIFT. SAFETY MEASURES FOLLOWED: BED AT LOWEST POSITION, RAILS UPX2, CALL IBRAHIM WITHIN REACH, BED ALARM ON.
[2021-08-26 20:17] VITALS: BP 147/78
[2021-08-26] MEDS: IV NS 0.9% 1,000 ML IV PRN (21:41)
[2021-08-26] MEDS: *INSULIN REGULAR(HUMULIN R)HUM 100 UNIT/ML VIAL SQ PRN (22:14)
[2021-08-27 06:28] LABS: BASOPHILS # (AUTO) 0.1 K/uL (0.0-0.2); BASOPHILS % (AUTO) 0.9 % (0.0-2.0); EOSINOPHILS % (AUTO) 3.6 % (0.0-6.0); HEMATOCRIT 34 % (39-51); HEMOGLOBIN 11.4 g/dL (13.5-17.5); LYMPHOCYTES # (AUTO) 1.7 K/uL (0.8-4.8); LYMPHOCYTES % (AUTO) 17.7 % (20.0-44.0); MEAN CORPUSCULAR HGB CONC 33 g/dl (31.0-36.0); MEAN CORPUSCULAR VOLUME 85 fL (80-96); MONOCYTES # (AUTO) 0.6 K/uL (0.1-1.30); MONOCYTES % (AUTO) 6.7 % (2.0-12.0); NEUTROPHILS # (AUTO) 6.7 K/uL (1.8-8.9); NEUTROPHILS % (AUTO) 71.1 % (43.0-81.0); PLATELET COUNT (AUTO) 421 K/uL (150-450); RED BLOOD CELL COUNT(AUTO) 4.03 MIL/uL (4.5-6.0); WHITE BLOOD COUNT (AUTO) 9.5 K/uL (4.3-11.0)
[2021-08-27 06:56] LABS: ALBUMIN 2.1 g/dL (3.4-5.0); BILIRUBIN,TOTAL 0.2 mg/dL (0.2-1.0); CALCIUM, SERUM 8.8 mg/dL (8.5-10.1); CREATININE 1.4 mg/dL (0.6-1.3); POTASSIUM 4.1 mmol/L (3.5-5.1); TOTAL PROTEIN, SERUM 7.5 g/dL (6.4-8.2)
--- NOTE | 2021-08-27 06:57 | NUR ---
FINE ARTS INSTRUCTOR CLOSING NOTE PATIENT IS AWAKE IN BED. A/OX4. NO S/S OF DISTRESS; NO CIRCULATORY ISSUES PRESENT. NO PAIN NOTED. PATIENT IS SCHEDULED TO HAVE SURGERY THIS A.M. AT 1100 ALL NEEDS FOR PATIENT HAVE BEEN MET. SAFETY MEASURES IN PLACE: BED AT LOWEST POSITION, RAILS UP X2, CALL IBRAHIM WITHIN REACH. WILL ENDORSE TO NEXT SHIFT FOR YONATAN. Addendum: 08/27/21 at 0702 by JAILYN PINA RN PATIENT IS ALSO CURRENTLY SR 84 PER TELE
[2021-08-27] MEDS: PANTOPRAZOLE 40 MG TABLET.DR PO SCH (07:30)
--- NOTE | 2021-08-27 07:30 | NUR ---
received pt. in am.vitals stable. no complaints.npo for surg.states no pain.
[2021-08-27 08:19] VITALS: BP 152/84
[2021-08-27] MEDS: INSULIN GLARGINE, 100 UNIT/ML CARTRIDGE SQ SCH ×2 (09:00→21:17)
[2021-08-27] MEDS: CARVEDILOL 6.25 MG TABLET PO SCH ×2 (09:00→17:59)
[2021-08-27] MEDS: ASPIRIN 81 MG TAB.CHEW PO SCH (09:00)
[2021-08-27] MEDS: ATORVASTATIN 40 MG TABLET PO SCH (09:00)
[2021-08-27] MEDS: VALSARTAN 80 MG TABLET PO SCH (09:00)
[2021-08-27] MEDS: ENOXAPARIN SODIUM 40 MG/0.4 ML DISP.SYRIN SQ SCH (09:00)
[2021-08-27] MEDS: CEFEPIME 2 GM in IV D5W 100 ML IV SCH ×2 (09:04→21:46)
[2021-08-27] MEDS: BLOOD SUGAR DIAGNOSTIC 1 EACH STRIP VI SCH ×4 (09:05→21:10)
[2021-08-27] MEDS: VANCOMYCIN 0.75 GM in IV D5W 250 ML IV SCH (10:24)
[2021-08-27] MEDS ORDERED: BUPIVACAINE MPF 0.5% W/EPI INJ 30 ML VIAL ONE (10:26)
[2021-08-27] MEDS ORDERED: BUPIVACAINE 0.5 % PF 150 MG/30 ML VIAL ONE (10:26)
[2021-08-27] MEDS ORDERED: LIDOCAINE 1% INJ 50 ML MDV IJ ONE (10:26)
[2021-08-27] MEDS ORDERED: PROPOFOL 20 ML IV ONE (11:03)
[2021-08-27] MEDS ORDERED: MIDAZOLAM HCL 2 MG/2ML VIAL ONE ×2 (11:03)
[2021-08-27] MEDS ORDERED: BUPIVACAINE 0.25% 75 MG/30 ML VIAL ONE (11:07)
--- NOTE | 2021-08-27 13:30 | NUR ---
returned fro [facility] stable.instructed not to get oob.voided large amt. shortly after return to .
--- NOTE | 2021-08-27 14:45 | NUR ---
sports administrator in to rm and pt. getting up amb. to bathrm.reminded him he is supposed to be on bedrest.scant amt.sanguinous drainage on drsg.vs stable.
[2021-08-27] MEDS: INSULIN REGULAR, HUMAN 100 UNIT/ML 3 ML VIAL SQ PRN ×3 (14:53→21:15)
[2021-08-27] MEDS: AMLODIPINE BESYLATE 5 MG TABLET PO SCH (14:55)
[2021-08-27 16:15] VITALS: BP 153/86
--- NOTE | 2021-08-27 19:52 | NUR ---
CLINICAL PHARMACY TECHNICIAN OPENING NOTE PATIENT WAS RECEIVED AWAKE IN BED. NO S/S OF DISTRESS, BREATHING IS SYMMETRICAL. WILL PICC WITH NS @75ML/HR. SKIN CLEAN & INTACT. PATIENT HAS UNDERGONE A LEFT SECOND TOE AMPUTATION AND HAS BEEN INSTRUCTED NOT TO PUT WEIGHT ON LEFT FOOT. DAY SHIFT NURSE STATED PATIENT HAS ATTEMPTED TO AMBULATE EVEN AFTER BEING INSTRUCTED NOT TO. UPON RECIVING PATIENT, WOUND HEALING PROMOTION EDUCATION GIVEN AND REINFORCED THE POINT TO THE PATIENT THAT HE SHOULD NOT GET UP AT ALL AND TO USE CALL LIGHT INSTRUCTED. ALL COMFORT MEASURES WILL BE PROVIDED PRN. SAFETY MEASURES IN PLACE: BED AT LOWEST POSITION, RAILS UP X2, CALL IBRAHIM WITHIN REACH. PATIENT WILL BE MONITORED THROUGHOUT SHIFT. Addendum: 08/27/21 at 1957 by JAILYN PINA RN PATIENT WAS ALSO CHECKED AT TELE STATION FOR CURRENT TELE RHYTHM: TELE SR 89.
[2021-08-27] MEDS: IV NS 0.9% 1,000 ML IV PRN (19:58)
[2021-08-27 20:00] VITALS: BP 139/60
[2021-08-28] VITALS: BP 108/60
[2021-08-28 04:00] VITALS: BP 141/78
--- NOTE | 2021-08-28 06:35 | NUR ---
PROMOTIONAL MARKETING AGENT CLOSING NOTE PATIENT FOUND AWAKE IN BED. PATIENT IS IN A PLEASANT MOOD. A/OX4. NO S/S OF DISTRESS. WILL PICC RUNNING NS 75ML/HR. PER TELE DESK PATIENT IS SR 85. PATIENT EDUCATION AND DIRECTION GIVEN REGARDING REMAINING IN BED TILL THE 24 BEDREST ORDER EXPIRES. ALL COMFORT MEASURES UNDERTAKEN FOR PATIENT. SAFETY MEASURES IN PLACE: BED AT LOWEST POSITION, RAILS UP X2, CALL IBRAHIM WITHIN REACH. WILL ENDORSE TO NEXT SHIFT FOR YONATAN.
[2021-08-28 06:40] LABS: BASOPHILS # (AUTO) 0.1 K/uL (0.0-0.2); BASOPHILS % (AUTO) 0.7 % (0.0-2.0); EOSINOPHILS % (AUTO) 3.7 % (0.0-6.0); HEMATOCRIT 35 % (39-51); HEMOGLOBIN 11.5 g/dL (13.5-17.5); LYMPHOCYTES # (AUTO) 2.1 K/uL (0.8-4.8); LYMPHOCYTES % (AUTO) 19.4 % (20.0-44.0); MEAN CORPUSCULAR HGB CONC 33 g/dl (31.0-36.0); MEAN CORPUSCULAR VOLUME 85 fL (80-96); MONOCYTES # (AUTO) 0.7 K/uL (0.1-1.30); MONOCYTES % (AUTO) 6.8 % (2.0-12.0); NEUTROPHILS # (AUTO) 7.5 K/uL (1.8-8.9); NEUTROPHILS % (AUTO) 69.4 % (43.0-81.0); PLATELET COUNT (AUTO) 459 K/uL (150-450); RED BLOOD CELL COUNT(AUTO) 4.06 MIL/uL (4.5-6.0); WHITE BLOOD COUNT (AUTO) 10.8 K/uL (4.3-11.0)
[2021-08-28 06:48] LABS: ALBUMIN 2.2 g/dL (3.4-5.0); BILIRUBIN,TOTAL 0.2 mg/dL (0.2-1.0); CALCIUM, SERUM 8.1 mg/dL (8.5-10.1); CREATININE 1.6 mg/dL (0.6-1.3); POTASSIUM 4.3 mmol/L (3.5-5.1); TOTAL PROTEIN, SERUM 7.7 g/dL (6.4-8.2)
[2021-08-28] MEDS: BLOOD SUGAR DIAGNOSTIC 1 EACH STRIP VI SCH ×4 (07:27→21:12)
[2021-08-28] MEDS: INSULIN REGULAR, HUMAN 100 UNIT/ML 3 ML VIAL SQ PRN ×3 (07:30→17:35)
[2021-08-28 08:00] VITALS: BP 160/80
[2021-08-28] MEDS: INSULIN GLARGINE, 100 UNIT/ML CARTRIDGE SQ SCH ×2 (09:14→21:22)
[2021-08-28] MEDS: ENOXAPARIN SODIUM 40 MG/0.4 ML DISP.SYRIN SQ SCH (09:21)
[2021-08-28] MEDS: ASPIRIN 81 MG TAB.CHEW PO SCH (09:28)
[2021-08-28] MEDS: VALSARTAN 80 MG TABLET PO SCH (09:28)
[2021-08-28] MEDS: AMLODIPINE BESYLATE 5 MG TABLET PO SCH (09:28)
[2021-08-28] MEDS: ATORVASTATIN 40 MG TABLET PO SCH (09:29)
[2021-08-28] MEDS: CARVEDILOL 6.25 MG TABLET PO SCH ×2 (09:29→17:37)
[2021-08-28] MEDS: PANTOPRAZOLE 40 MG TABLET.DR PO SCH (09:29)
[2021-08-28] MEDS: CEFEPIME 2 GM in IV D5W 100 ML IV SCH ×2 (09:35→20:54)
[2021-08-28] MEDS: VANCOMYCIN 0.75 GM in IV D5W 250 ML IV SCH (11:14)
[2021-08-28] MEDS: IV NS 0.9% 1,000 ML IV PRN (11:15)
[2021-08-28 16:00] VITALS: BP 142/77
--- NOTE | 2021-08-28 18:00 | NUR ---
DR CONTRERAS IN AND LT. FOOT DRSG CHANGED.DENIES PAIN.
--- NOTE | 2021-08-28 19:51 | NUR ---
INTEGRATED MARKETING MANAGER NURSE OPENING NOTE PATIENT RECEIVED AWAKE IN BED. PATIENT IS A/OX4. PATIENT HAS WILL PICC NS 75ML/HR. TELE SR 89. SKIN IS INTACT THROUGHOUT. NO S/S OF DISTRESS. NO PAIN NOTED. CAP REFILL <3 SECS, NO ABRASIONS. SAFETY MEASURES FOLLOWED: BED AT LOWEST POSITION, RAILS UP X2, CALL IBRAHIM WITHIN REACH. PATIENT WILL BE MONITORED THROUGHOUT SHIFT.
[2021-08-28 20:00] VITALS: BP 139/71
[2021-08-28] MEDS: *INSULIN REGULAR(HUMULIN R)HUM 100 UNIT/ML VIAL SQ PRN (21:21)
[2021-08-29] VITALS: BP 115/60
[2021-08-29 04:00] VITALS: BP 140/73
[2021-08-29] MEDS: BLOOD SUGAR DIAGNOSTIC 1 EACH STRIP VI SCH ×2 (06:29→11:30)
[2021-08-29] MEDS: INSULIN REGULAR, HUMAN 100 UNIT/ML 3 ML VIAL SQ PRN ×2 (06:30→11:49)
--- NOTE | 2021-08-29 07:15 | NUR ---
SOFTWARE PUBLISHER CLOSING NOTE PATIENT AWAKE IN BED. A/OX4. NO S/S OF DISTRESS. BREATHING SYMMETRICAL. CAP REFILL <3 SECS. WILL PICC PATENT. TELE SR 81. SAFETY MEASURES IN PLACE: BED AT LOWEST POSITION, RAILS UP X2, CALL IBRAHIM WITHIN REACH. WILL ENDORSE TO THE NEXT SHIFT FOR YONATAN.
--- NOTE | 2021-08-29 07:30 | NUR ---
ARCHITECTURE DEPARTMENT CHAIR NURSE OPENING NOTE PATIENT RECEIVED AWAKE IN BED. PATIENT IS A/OX4. PATIENT HAS WILL PICC NS 75ML/HR. TELE SR 81. SKIN IS INTACT THROUGHOUT. NO S/S OF DISTRESS. NO PAIN NOTED. CAP REFILL <3 SECS, NO ABRASIONS. DRESSING INTACT ON THE LEFT SECOND TOE. NO BLEEDING NOTED. SAFETY MEASURES FOLLOWED: BED AT LOWEST POSITION, RAILS UP X2, CALL IBRAHIM WITHIN REACH. PATIENT WILL BE MONITORED THROUGHOUT SHIFT.
[2021-08-29] MEDS: PANTOPRAZOLE 40 MG TABLET.DR PO SCH (07:54)
[2021-08-29 08:00] VITALS: BP 163/85
[2021-08-29 08:05] LABS: BASOPHILS # (AUTO) 0.1 K/uL (0.0-0.2); EOSINOPHILS % (AUTO) 3.4 % (0.0-6.0); HEMATOCRIT 37 % (39-51); HEMOGLOBIN 11.8 g/dL (13.5-17.5); LYMPHOCYTES # (AUTO) 3.2 K/uL (0.8-4.8); LYMPHOCYTES % (AUTO) 28.1 % (20.0-44.0); MEAN CORPUSCULAR HGB CONC 32 g/dl (31.0-36.0); MEAN CORPUSCULAR VOLUME 85 fL (80-96); MONOCYTES # (AUTO) 0.8 K/uL (0.1-1.30); MONOCYTES % (AUTO) 7.2 % (2.0-12.0); NEUTROPHILS # (AUTO) 6.8 K/uL (1.8-8.9); NEUTROPHILS % (AUTO) 60.3 % (43.0-81.0); PLATELET COUNT (AUTO) 479 K/uL (150-450); RED BLOOD CELL COUNT(AUTO) 4.29 MIL/uL (4.5-6.0); WHITE BLOOD COUNT (AUTO) 11.3 K/uL (4.3-11.0)
[2021-08-29 08:30] LABS: ALBUMIN 2.5 g/dL (3.4-5.0); BILIRUBIN,TOTAL 0.3 mg/dL (0.2-1.0); CALCIUM, SERUM 8.5 mg/dL (8.5-10.1); CREATININE 1.4 mg/dL (0.6-1.3); POTASSIUM 3.8 mmol/L (3.5-5.1); TOTAL PROTEIN, SERUM 8.4 g/dL (6.4-8.2)
[2021-08-29] MEDS: CARVEDILOL 6.25 MG TABLET PO SCH ×2 (08:37→16:51)
[2021-08-29] MEDS: ASPIRIN 81 MG TAB.CHEW PO SCH (08:37)
[2021-08-29] MEDS: ATORVASTATIN 40 MG TABLET PO SCH (08:38)
[2021-08-29] MEDS: VALSARTAN 80 MG TABLET PO SCH (08:40)
[2021-08-29] MEDS: CEFEPIME 2 GM in IV D5W 100 ML IV SCH (08:40)
[2021-08-29] MEDS: AMLODIPINE BESYLATE 5 MG TABLET PO SCH (08:49)
[2021-08-29] MEDS: ENOXAPARIN SODIUM 40 MG/0.4 ML DISP.SYRIN SQ SCH (08:52)
[2021-08-29] MEDS: INSULIN GLARGINE, 100 UNIT/ML CARTRIDGE SQ SCH (08:54)
[2021-08-29] MEDS: VANCOMYCIN 0.75 GM in IV D5W 250 ML IV SCH (09:48)
[2021-08-29] MEDS: IV NS 0.9% 1,000 ML IV PRN (09:48)
[2021-08-29] MEDS ORDERED: CLIN300C12 PO (10:21)
[2021-08-29] MEDS ORDERED: LEVO500T90 PO (10:21)
[2021-08-29] MEDS ORDERED: HYDR-3972 PO (10:21)
[2021-08-29] MEDS ORDERED: INFLUENZA VACCINE 2021-22 0.5 ML DISP.SYRIN IM ONE (14:00)
[2021-08-29 16:51] VITALS: BP 149/76
--- NOTE | 2021-08-29 17:25 | NUR ---
RN NOTES FOR WOUND FOLLOW UP. GAVE THE PATIENT SURGICAL SHOE AND EDUCATE AND REMIND THE PATIENT FOR FOLLOW UP APPOINTMENT WITH THE WOUND CLINIC IN A WEEK. PATIENT VERBALIZED UNDERSTANDING.
--- NOTE | 2021-08-29 17:27 | NUR ---
MACHINE ETCHER NOTES. PATIENT DISCHARGED AT 1700 IN STABLE CONDITION. MEDICATION AND WOUND FOLLOW UP INSTRUCTIONS GIVEN. REMOVED THE RIGHT PICC LINE. NO BLEEDING NO DISCOMFORT NOTED . COVERED WITH DRY DRESSING .NO PAIN NO DISCOMFORT AND NO RESPIRATORY DISTRESS NOTED. ALL NEEDS ATTENDED. BELONGINGS ACCOUNTED AND SIGNED FOR . aRM BAND REMOVED. LIYL MARTINEELED THE PATIIENT TO LOBBY IN STABLE CONDITION. MD AND CHARGE NURSE AWARE OF THE DISCHARGE.
== END 2021-08-29 17:30 | disposition home or self-care (01) | DRG 710 ==
LOC: ER 08:31 → MED 11:39 → TELE 08-26 22:01
PROVIDERS: ATTEND Nurse Practitioner Acute Care
PROC: 0JBR0ZZ Excision of Left Foot Subcutaneous Tissue and Fascia, Open Approach (ICD-10-PCS; principal; 2021-08-20)
PROC: 02HV33Z Insertion of Infusion Device into Superior Vena Cava, Percutaneous Approach (ICD-10-PCS; 2021-08-20)
PROC: B548ZZA Ultrasonography of Superior Vena Cava, Guidance (ICD-10-PCS; 2021-08-20)
PROC: 047L3ZZ Dilation of Left Femoral Artery, Percutaneous Approach (ICD-10-PCS; 2021-08-26)
PROC: B410YZZ Fluoroscopy of Abdominal Aorta using Other Contrast (ICD-10-PCS; 2021-08-26)
PROC: B41GYZZ Fluoroscopy of Left Lower Extremity Arteries using Other Contrast (ICD-10-PCS; 2021-08-26)
PROC: 0Y6S0Z1 Detachment at Left 2nd Toe, High, Open Approach (ICD-10-PCS; 2021-08-27)
DX: A41.9 Sepsis, unspecified organism (principal); N17.0 Acute kidney failure with tubular necrosis; E46 Unspecified protein-calorie malnutrition; E11.52 Type 2 diabetes mellitus with diabetic peripheral angiopathy with gangrene; E87.1 Hypo-osmolality and hyponatremia; D63.8 Anemia in other chronic diseases classified elsewhere; I96 Gangrene, not elsewhere classified; J18.9 Pneumonia, unspecified organism; E88.09 Other disorders of plasma-protein metabolism, not elsewhere classified; E11.22 Type 2 diabetes mellitus with diabetic chronic kidney disease; E11.40 Type 2 diabetes mellitus with diabetic neuropathy, unspecified; E11.621 Type 2 diabetes mellitus with foot ulcer; E11.69 Type 2 diabetes mellitus with other specified complication; L03.116 Cellulitis of left lower limb; B95.62 Methicillin resistant Staphylococcus aureus infection as the cause of diseases classified elsewhere; Z53.29 Procedure and treatment not carried out because of patient's decision for other reasons; E11.65 Type 2 diabetes mellitus with hyperglycemia; Z20.822 Contact with and (suspected) exposure to COVID-19; N18.2 Chronic kidney disease, stage 2 (mild); I12.9 Hypertensive chronic kidney disease with stage 1 through stage 4 chronic kidney disease, or unspecified chronic kidney disease; D75.838 Other thrombocytosis; E66.01 Morbid (severe) obesity due to excess calories; E78.5 Hyperlipidemia, unspecified; F17.210 Nicotine dependence, cigarettes, uncomplicated; Z79.82 Long term (current) use of aspirin; R74.8 Abnormal levels of other serum enzymes; Z68.37 Body mass index [BMI] 37.0-37.9, adult; Z79.4 Long term (current) use of insulin; B96.5 Pseudomonas (aeruginosa) (mallei) (pseudomallei) as the cause of diseases classified elsewhere; L97.528 Non-pressure chronic ulcer of other part of left foot with other specified severity; M86.8X7 Other osteomyelitis, ankle and foot
CPT/HCPCS: 36246; 36415; 36569; 71045-TC; 73630-TC; 73718-TC; 75625; 75635-TC; 75710-TC; 76700-TC; 80048-TC; 80053-TC; 80061-TC; 80076-TC; 80202-TC; 81001; 82962-TC; 83605-TC; 83735-TC; 84100-TC; 84439-TC; 84443-TC; 84481; 84484-TC; 85025-TC; 85652-TC; 85730-TC; 86140-TC; 86850-TC; 87040-TC; 87070-TC; 87075-TC; 87081-TC; 87086-TC; 87186-TC; 88305-TC; 88311-TC; 97116-TC; 97530-TC; A6403; C1769; C1887; C9803; G0378; G0500; J0692; J0696; J1644; J1650; J1815; J2250; J2405; J2543; J2704; J2765; J3010; J3370; J3490; J7030; J7050; J7060; Q2036; Q9967

== ENCOUNTER → 2021-09-03 | Emergency (ER) | payer SELFPAY ==
[~2021-09-03] VITALS: Ht 175.3 cm; Wt 99.8 kg
[~2021-09-03] MED LIST changes: +CLIN300C12 PO; +HYDR-3972 PO; +LEVO500T90 PO
--- NOTE | 2021-09-03 09:29 | NUR ---
visit for wound check s/p L 2nd toe surgery 3 weeks ago. denies any pain
--- NOTE | 2021-09-03 09:59 | NUR ---
Patient discharged to home in stable condition. Written and verbal after care instructions given. Patient verbalizes understanding of instruction.
[2021-09-03 10:00] VITALS: BP 144/71
== END | disposition home or self-care (01) ==
LOC: ER 09:33
DX: S91.115D Laceration without foreign body of left lesser toe(s) without damage to nail, subsequent encounter (principal); I10 Essential (primary) hypertension; E11.9 Type 2 diabetes mellitus without complications; Z98.890 Other specified postprocedural states; Z79.899 Other long term (current) drug therapy; Z79.4 Long term (current) use of insulin; Z79.82 Long term (current) use of aspirin; X58.XXXD Exposure to other specified factors, subsequent encounter

== ENCOUNTER 2021-12-14 12:54 | Inpatient (IN) | payer MEDICAID ==
[~2021-12-14] VITALS: Ht 172.7 cm; Wt 112.0 kg
--- NOTE | 2021-12-14 13:30 | NUR ---
CAME IN FOR BLE SWELLING, STARTED THURSDAY AND GETTING WORSE. TO ER BED 2, HOOKED TO MONITOR, VSS, CHANGED TO HOSP GOWN, WARM BLANKET PROVIDED. AWAITING MD HEBERT
--- NOTE | 2021-12-14 14:35 | NUR ---
NOTED WITH COLD CLAMMY SKIN, PATIENT MENTIONED HE TOOK NOVOLOG 24UNITS AT 8AM AND HAVEN'T EATEN ANYTHING SINCE THEN. DR JAIN AT BEDSIDE
--- NOTE | 2021-12-14 14:39 | NUR ---
DR JAIN AT BEDSIDE
[2021-12-14] MEDS ORDERED: DEXTROSE 50%-WATER 50 ML DISP.SYRIN ONE (15:07)
[2021-12-14] MEDS: DEXTROSE 50%-WATER 50 ML DISP.SYRIN IVP ONE ×2 (15:10→16:00)
[2021-12-14 15:29] LABS: BASOPHILS # (AUTO) 0.1 K/uL (0.0-0.2); BASOPHILS % (AUTO) 0.6 % (0.0-2.0); EOSINOPHILS % (AUTO) 3.9 % (0.0-6.0); HEMATOCRIT 42 % (39-51); HEMOGLOBIN 13.7 g/dL (13.5-17.5); LYMPHOCYTES # (AUTO) 4.7 K/uL (0.8-4.8); LYMPHOCYTES % (AUTO) 41.8 % (20.0-44.0); MEAN CORPUSCULAR HGB CONC 33 g/dl (31.0-36.0); MEAN CORPUSCULAR VOLUME 84 fL (80-96); MONOCYTES # (AUTO) 0.7 K/uL (0.1-1.30); MONOCYTES % (AUTO) 6.1 % (2.0-12.0); NEUTROPHILS # (AUTO) 5.3 K/uL (1.8-8.9); NEUTROPHILS % (AUTO) 47.6 % (43.0-81.0); PLATELET COUNT (AUTO) 336 K/uL (150-450); RED BLOOD CELL COUNT(AUTO) 4.99 MIL/uL (4.5-6.0); WHITE BLOOD COUNT (AUTO) 11.1 K/uL (4.3-11.0)
[2021-12-14 15:33] LABS: C-REACTIVE PROTEIN 0.8 mg/dL (0.0-0.9); CALCIUM, SERUM 9.7 mg/dL (8.5-10.1); CREATININE 1.1 mg/dL (0.6-1.3); POTASSIUM 3.3 mmol/L (3.5-5.1)
[2021-12-14] MEDS: PIPERACILLIN /TAZOBACTAM 3.375 G in IV D5W 50 ML IV ONE ×2 (17:26→17:40)
--- NOTE | 2021-12-14 17:27 | NUR ---
RAPID COVID SWAB DONE AND SENT TO LAB
[2021-12-14] MEDS ORDERED: VANCOMYCIN 1 GM in IV D5W 250 ML IV ONE ×2 (17:30→21:00)
--- NOTE | 2021-12-14 17:35 | NUR ---
PHLEB AT BEDSIDE FOR BLOOD CULTURE DRAW
--- NOTE | 2021-12-14 18:23 | NUR ---
CALLED NURSE SUP FOR MEDS[facility]G BED
[2021-12-14] MEDS ORDERED: MAG HYDROX/AL HYDROX/SIMETH 30 ML UDC PO PRN (19:00)
[2021-12-14] MEDS ORDERED: ZOLPIDEM TARTRATE 5 MG TABLET PO PRN (19:00)
[2021-12-14] MEDS ORDERED: Z GUARD REMEDY 4 OZ OINT TP PRN (19:00)
[2021-12-14] MEDS ORDERED: HYDROCODONE/APAP 5/325MG TABLET PO PRN (19:00)
[2021-12-14] MEDS ORDERED: ONDANSETRON HCL/PF 4 MG/2 ML VIAL IVP PRN (19:00)
[2021-12-14] MEDS ORDERED: ACETAMINOPHEN 325 MG TABLET PO PRN (19:00)
[2021-12-14] MEDS ORDERED: MAGNESIUM HYDROXIDE 30 ML UDC PO PRN (19:00)
--- NOTE | 2021-12-14 19:21 | NUR ---
REPORT GIVEN TO DAVIAN MELO FOR [facility]ONATAN
[2021-12-14] MEDS ORDERED: INSULIN GLARGINE, 100 UNIT/ML CARTRIDGE SQ ONE (21:49)
[2021-12-14] MEDS: INSULIN GLARGINE, 100 UNIT/ML CARTRIDGE SQ SCH (22:07)
[2021-12-14] MEDS ORDERED: MAG HYDROX/AL HYDROX/SIMETH 30 ML UDC ONE (22:18)
[2021-12-14] MEDS ORDERED: PIPERACILLIN /TAZOBACTAM 3.375 G VIAL IV ONE (23:56)
[2021-12-15] MEDS ORDERED: PIPERACILLIN /TAZOBACTAM 3.375 G in IV D5W 50 ML IV SCH ×2
[2021-12-15] MEDS: PIPERACILLIN /TAZOBACTAM 3.375 G in IV D5W 50 ML IV SCH ×2 (00:02→00:52)
[2021-12-15] MEDS ORDERED: PIPERACILLIN /TAZOBACTAM 3.375 G VIAL IV ONE (00:52)
--- NOTE | 2021-12-15 05:50 | NUR ---
TEXT DR. SNIDER FOR MRI APPROVAL.
[2021-12-15 06:50] LABS: BASOPHILS % (AUTO) 0.7 % (0.0-2.0); HEMATOCRIT 42 % (39-51); HEMOGLOBIN 13.9 g/dL (13.5-17.5); LYMPHOCYTES # (AUTO) 1.6 K/uL (0.8-4.8); LYMPHOCYTES % (AUTO) 22.8 % (20.0-44.0); MEAN CORPUSCULAR HGB CONC 33 g/dl (31.0-36.0); MEAN CORPUSCULAR VOLUME 84 fL (80-96); MONOCYTES # (AUTO) 0.4 K/uL (0.1-1.30); MONOCYTES % (AUTO) 5.7 % (2.0-12.0); NEUTROPHILS # (AUTO) 4.6 K/uL (1.8-8.9); NEUTROPHILS % (AUTO) 65.8 % (43.0-81.0); PLATELET COUNT (AUTO) 283 K/uL (150-450); WHITE BLOOD COUNT (AUTO) 6.9 K/uL (4.3-11.0)
[2021-12-15 07:04] LABS: CALCIUM, SERUM 8.6 mg/dL (8.5-10.1); CREATININE 1.1 mg/dL (0.6-1.3); MAGNESIUM 1.9 mg/dL (1.8-2.4); PHOSPHORUS 3.6 mg/dL (2.5-4.9); POTASSIUM 3.4 mmol/L (3.5-5.1)
--- NOTE | 2021-12-15 07:44 | NUR ---
PER RN [employer] WORKER PT WILL BE GOING TO BED 322-1
--- NOTE | 2021-12-15 07:58 | NUR ---
REPORT GIVEN TO BRIDGER MELO FOR YONATAN
[2021-12-15] MEDS ORDERED: VANCOMYCIN 1.5 GM in IV D5W 500 ML IV SCH (08:00)
--- NOTE | 2021-12-15 08:09 | NUR ---
PT TRANSFERRED UNDER ACLS
[2021-12-15] MEDS ORDERED: AMLO1TAB13 PO (08:11)
[2021-12-15] MEDS: INSULIN LISPRO/ASPART 100 UNIT/ML CARTRIDGE SQ SCH ×3 (09:00→17:37)
--- NOTE | 2021-12-15 09:00 | NUR ---
MS RN NOTE PATIENT ADMITTED FROM ER, TRANSPORTED ON A GURNEY ACCOMPANIED BY 2 NURSES. PATIENT ABLE TO TRANSFER HIMSELF TO THE GURNEY TO HIS BED WITH LITTLE ASSISTANCE. PATIENT IS ALERT AND ORIENTED X4, ABLE TO MAKE NEEDS KNOWN. PATIENT ON ROOM AIR WITH EQUAL AND UNLABORED BREATHING WITH NO SIGNS OF DISTRESS. PATIENT WITH IV ACCESS ON LEFT AC G18 ON SALINE LOCK, PATENT AND INTACT. WITH BIPEDAL NON-PITTING EDEMA WITH WOUNDS ON BOTH FEET, DOCUMENTED ACCORDINGLY. PATIENT SEEMED GUARDED ANSWERING QUESTIONS AND ANXIOUS AT TIMES. 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 COMFORT MEASURES PROVIDED. MD NOTIFIED OF ADMISSION. WITH SAFETY MEASURES ENSURED WITH BED ON LOWEST LOCKED POSITION, SIDERAILS RAISED AND CALL LIGHT WITHIN REACH. WILL CONTINUE TO MONITOR PATIENT.
[2021-12-15 09:29] VITALS: BP 161/85
[2021-12-15] MEDS: ASPIRIN 81 MG TAB.CHEW PO SCH (09:29)
[2021-12-15] MEDS: VALSARTAN 80 MG TABLET PO SCH (09:29)
[2021-12-15] MEDS: AMLODIPINE BESYLATE 5 MG TABLET PO SCH (09:30)
--- NOTE | 2021-12-15 09:45 | NUR ---
MS RN NOTE PATIENT SAID THAT HIS MEDICATIONS ARE IN HIS CAR AT THE PARKING AND THAT HE WANTS TO SMOKE. PATIENT ACCOMPANIED BY GUARD TO HIS CAR. PATIENT SIGNED SMOKING FOR. VERBALIZED UNDERSTANDING AND APPRECIATION OF HEALTH TEACHINGS REGARDING SMOKING POLICY AND EFFECTS OF SMOKING. WILL CONTINUE TO MONITOR PATIENT.
[2021-12-15] MEDS ORDERED: POTASSIUM CHLORIDE 20 MEQ TAB.PRT.SR PO ONE (10:00)
--- NOTE | 2021-12-15 10:00 | NUR ---
MS RN NOTE PATIENT IS A SMOKER AND INSISTED ON SMOKING. SUGGESTED NICOTINE PATCH, BUT REFUSED NICOTINE PATCH. PATIENT SAID 'HE KNOWS HIS BODY'. WILL CONTINUE TO MONITOR PATIENT.
[2021-12-15] MEDS: PIPERACILLIN /TAZOBACTAM 3.375 G in IV D5W 100 ML IV SCH ×2 (10:45→19:33)
[2021-12-15 16:00] VITALS: BP 133/71
[2021-12-15] MEDS: BLOOD SUGAR DIAGNOSTIC 1 EACH STRIP IN SCH ×2 (17:40→22:14)
--- NOTE | 2021-12-15 19:10 | NUR ---
MS MELO NOTE PATIENT ENDORSED TO NEXT SHIFT. REMAINS STABLE WITH OXYGEN SATURATING BETWEEN 80-88% WITH HR AT 100. NO URINE OUTPUT NOTED. ENDORSED TO NEXT SHIFT FOR CONTINUITY OF CARE. Addendum: 12/15/21 at 1946 by FRANCIA AYOUB RN WRONG ENTRY
--- NOTE | 2021-12-15 19:19 | NUR ---
MS RN CLOSING NOTE PATIENT IS ALERT AND ORIENTED X4, ABLE TO MAKE NEEDS KNOWN. PATIENT ON ROOM AIR WITH EQUAL AND UNLABORED BREATHING WITH NO SIGNS OF DISTRESS. PATIENT WITH IV ACCESS ON LEFT AC G18 ON SALINE LOCK, PATENT AND INTACT. WITH BIPEDAL NON-PITTING EDEMA WITH WOUNDS ON BOTH FEET, DOCUMENTED ACCORDINGLY. COMFORT MEASURES PROVIDED. PATIENT STILL GOES DOWN TO SMOKE AND ANTIBIOTIC DELAYED BEACUSE OF THIS. PATIENT HEALTH TEACHING DONE. VERBALIZED UNDERSTANDING AND APPRECIATION. WITH SAFETY MEASURES ENSURED WITH BED ON LOWEST LOCKED POSITION, SIDERAILS RAISED AND CALL LIGHT WITHIN REACH. WILL ENDORSE TO NEXT SHIFT FOR CONTINUITY OF CARE.
--- NOTE | 2021-12-15 19:30 | NUR ---
RN OPENING NOTE PATIENT IN BED, AWAKE. PATIENT IS A/O X 4 ABLE TO MAKE NEEDS KNOWN. PATIENT TOLERATING ROOM AIR, NO SOB NOTED. PATIENT DOES NOT REPORT ANY PAIN AT THIS TIME. PATIENT HAS A LAC 18 G- ZOSYN BEING ADMINISTERED BY FRANCIA MELO. SAFETY MEASURES IN PLACE: BED LOCKED AND IN LOWEST POSITION, CALL LIGHT WITHIN REACH, SIDE RAILS UP. WILL MONITOR PATIENT CLOSELY.
[2021-12-15 20:00] VITALS: BP 139/73
[2021-12-15] MEDS ORDERED: VANCOMYCIN 1.25 GM in IV D5W 250 ML IV SCH (20:00)
--- NOTE | 2021-12-15 21:05 | NUR ---
RN NOTE TYLENOL GIVEN FOR TEMP 99.5. COOLING MEASURES INITIATED. WILL REASSESS TEMP AT A LATER TIME
[2021-12-15] MEDS: INSULIN GLARGINE, 100 UNIT/ML CARTRIDGE SQ SCH (21:23)
--- NOTE | 2021-12-15 21:23 | NUR ---
BS 163 MG/DL. LANTUS 22 UNITS GIVEN. SNACKS PROVIDED. WILL MONITOR FOR HYPOGLYCEMIA
[2021-12-15] MEDS ORDERED: ATORVASTATIN 40 MG TABLET PO SCH (22:00)
[2021-12-16] MEDS: PIPERACILLIN /TAZOBACTAM 3.375 G in IV D5W 100 ML IV SCH ×2 (02:04→10:00)
[2021-12-16] MEDS: BLOOD SUGAR DIAGNOSTIC 1 EACH STRIP IN SCH ×2 (06:30→11:49)
[2021-12-16 06:39] LABS: BASOPHILS # (AUTO) 0.1 K/uL (0.0-0.2); EOSINOPHILS % (AUTO) 5.4 % (0.0-6.0); HEMATOCRIT 40 % (39-51); HEMOGLOBIN 13.1 g/dL (13.5-17.5); LYMPHOCYTES # (AUTO) 1.6 K/uL (0.8-4.8); MEAN CORPUSCULAR HGB CONC 33 g/dl (31.0-36.0); MEAN CORPUSCULAR VOLUME 83 fL (80-96); MONOCYTES # (AUTO) 0.5 K/uL (0.1-1.30); MONOCYTES % (AUTO) 6.9 % (2.0-12.0); NEUTROPHILS # (AUTO) 4.3 K/uL (1.8-8.9); NEUTROPHILS % (AUTO) 63.7 % (43.0-81.0); PLATELET COUNT (AUTO) 261 K/uL (150-450); WHITE BLOOD COUNT (AUTO) 6.8 K/uL (4.3-11.0)
--- NOTE | 2021-12-16 06:44 | NUR ---
RN CLOSING NOTE PATIENT IN BED, EYES CLOSED. PATIENT IS A/O X 4 ABLE TO MAKE NEEDS KNOWN. PATIENT TOLERATING ROOM AIR, NO SOB NOTED. PATIENT NOT IN ANY APPARENT DISTRESS. PATIENT DOES NOT REPORT ANY PAIN AT THIS TIME. PATIENT HAS A LAC 18 G PATENT AND INTACT, FLUSHING WELL. SALINE LOCKED ONLY. SAFETY MEASURES IN PLACE: BED LOCKED AND IN LOWEST POSITION, CALL LIGHT WITHIN REACH, SIDE RAILS UP. ALL NEEDS MET AND ATTENDED. ALL ORDERS CARRIED OUT. WILL ENDORSE TO DAY SHIFT NURSE FOR YONATAN. Addendum: 12/16/21 at 0646 by ANNE MORGAN RN BS 358 NO COVERAGE. PATIENT HAS NOVOLOG TID DUE AT 0900
[2021-12-16 07:06] LABS: CALCIUM, SERUM 8.6 mg/dL (8.5-10.1); CREATININE 1.3 mg/dL (0.6-1.3); POTASSIUM 4.1 mmol/L (3.5-5.1)
--- NOTE | 2021-12-16 07:54 | NUR ---
MS/RN OPENING NOTE PATIENT IN BED, AWAKE. PATIENT IS A/O X 4 ABLE TO MAKE NEEDS KNOWN. PATIENT TOLERATING ROOM AIR, NO SOB NOTED. PATIENT DOES NOT REPORT ANY PAIN AT THIS TIME. PATIENT HAS A LEFT AC #18-SL. SAFETY MEASURES IN PLACE: BED LOCKED AND IN LOWEST POSITION, CALL LIGHT WITHIN REACH, SIDE RAILS UP X2. WILL CONTINUE WITH THE PLAN OF CARE.
[2021-12-16 08:00] VITALS: BP 162/81
--- NOTE | 2021-12-16 08:00 | NUR ---
CALLED PHARMACY AND REPORTED THAT VANCO TROUGH IS 22, PHARMACY SAID THEY WILL CHANGE DOSE OF VANCOMYCIN.
--- NOTE | 2021-12-16 09:45 | NUR ---
WOUND CARE CONSULT: PT OFF UNIT IN MRI AT THIS TIME. PER REPORT, PT HAS FOOT WOUNDS, PRESENT ON ADMISSION. DR CONTRERAS NOTIFIED OF DPM CONSULT REQUEST. IN AGREEMENT WITH PLAN OF CARE. WILL SEE PT PT CONDITION PERMITS. CURRENT OMER SCORE IS 16.
[2021-12-16] MEDS: AMLODIPINE BESYLATE 5 MG TABLET PO SCH (09:47)
[2021-12-16 09:48] VITALS: BP 162/81
[2021-12-16] MEDS: VALSARTAN 80 MG TABLET PO SCH (09:48)
[2021-12-16] MEDS: ASPIRIN 81 MG TAB.CHEW PO SCH (09:48)
[2021-12-16] MEDS: INSULIN LISPRO/ASPART 100 UNIT/ML CARTRIDGE SQ SCH (09:54)
[2021-12-16] MEDS ORDERED: VANCOMYCIN 1 GM in IV D5W 250 ML IV SCH (10:00)
--- NOTE | 2021-12-16 11:51 | NUR ---
MS/RN AGAINST MEDICAL ADVISE NOTES PATIENT IS ALERT AND ORIENTED X4, ABLE TO MAKE NEEDS KNOWN. AMBULATORY AND STABLE ON ROOM AIR. PATIENT WANTS TO LEAVE HOSPITAL WITHOUT DOCTOR'S CONSENT. RN EXPLAINED RISKS OF LEAVING WITHOUT MEDICAL CONSENT. PATIENT UNDERSTOOD AND SIGNED AGAINST MEDICAL ADVISE FORM. RN DISCONTINUE IV ACCESS. LAND LEASING EXAMINER ESCORTED PATIENT DOWN TO THE LOBBY, PATIENT WILL DRIVE HIS OWN CAR TO GO HOME. MADE AWARE.
[2021-12-17] MEDS ORDERED: SILVER SULFADIAZINE CREAM 25 GM TUBE TP SCH (09:00)
== END 2021-12-16 13:00 | disposition left against medical advice (07) | DRG 344 ==
LOC: ER 12:56 → TRANSITION 20:34 → TELE 12-15 07:53 → MED 12-15 15:18
PROVIDERS: ADMIT Family Medicine; ATTEND Family Medicine
PROC: 0JBR0ZZ Excision of Left Foot Subcutaneous Tissue and Fascia, Open Approach (ICD-10-PCS; principal; 2021-12-16)
PROC: 0JBQ0ZZ Excision of Right Foot Subcutaneous Tissue and Fascia, Open Approach (ICD-10-PCS; 2021-12-16)
DX: E11.69 Type 2 diabetes mellitus with other specified complication (principal); M86.172 Other acute osteomyelitis, left ankle and foot; E11.649 Type 2 diabetes mellitus with hypoglycemia without coma; E11.40 Type 2 diabetes mellitus with diabetic neuropathy, unspecified; D72.829 Elevated white blood cell count, unspecified; L97.518 Non-pressure chronic ulcer of other part of right foot with other specified severity; E11.621 Type 2 diabetes mellitus with foot ulcer; E87.6 Hypokalemia; I10 Essential (primary) hypertension; E66.9 Obesity, unspecified; F17.210 Nicotine dependence, cigarettes, uncomplicated; Z79.4 Long term (current) use of insulin; E78.5 Hyperlipidemia, unspecified; Z79.82 Long term (current) use of aspirin; Z68.37 Body mass index [BMI] 37.0-37.9, adult; Z89.422 Acquired absence of other left toe(s); L97.528 Non-pressure chronic ulcer of other part of left foot with other specified severity; E11.65 Type 2 diabetes mellitus with hyperglycemia; Z20.822 Contact with and (suspected) exposure to COVID-19
CPT/HCPCS: 36415; 73630-TC; 73718-TC; 80048-TC; 80202-TC; 82962-TC; 83735-TC; 84100-TC; 85025-TC; 85652-TC; 86140-TC; 87040-TC; 93971-TC; C9803; G0378; J1815; J2543; J3370; J7040; J7060

== ENCOUNTER 2021-12-24 00:17 | Inpatient (IN) | payer SELFPAY ==
[~2021-12-24] VITALS: Ht 175.3 cm; Wt 113.4 kg
[~2021-12-24 00:17] MED LIST changes: -AMLO1TAB12 PO; +AMLO1TAB13 PO; -CLIN300C12 PO; -LEVO500T90 PO
--- NOTE | 2021-12-24 01:10 | NUR ---
BIBS FOR C/O R FOOT PAIN, SWELLING AND REDNESS. PT ON ABX FOR PREVIOUS OSTEOMYELITIS AND WOUND DEBRIDEMENT. PT REPORTS HAVING BEEN MED COMPLIENT BUT NOTICED RECURRENCE OF SWELLING AND REDNESS TO RLE. PT DENIES ANY FEVERS. CHANGED INTO GOWN AND PLACED ON MONITOR AND V/S STABLE.
[2021-12-24] MEDS ORDERED: VANCOMYCIN 1 GM VIAL ONE (01:27)
[2021-12-24] MEDS ORDERED: VANCOMYCIN 1 GM in IV D5W 250 ML IV ONE (01:30)
[2021-12-24 01:45] LABS: BASOPHILS # (AUTO) 0.1 K/uL (0.0-0.2); BASOPHILS % (AUTO) 0.6 % (0.0-2.0); HEMATOCRIT 43 % (39-51); HEMOGLOBIN 14.2 g/dL (13.5-17.5); LYMPHOCYTES # (AUTO) 1.4 K/uL (0.8-4.8); MEAN CORPUSCULAR HGB CONC 33 g/dl (31.0-36.0); MEAN CORPUSCULAR VOLUME 84 fL (80-96); MONOCYTES # (AUTO) 0.6 K/uL (0.1-1.30); MONOCYTES % (AUTO) 6.5 % (2.0-12.0); NEUTROPHILS # (AUTO) 7.6 K/uL (1.8-8.9); NEUTROPHILS % (AUTO) 75.9 % (43.0-81.0); PLATELET COUNT (AUTO) 307 K/uL (150-450); RED BLOOD CELL COUNT(AUTO) 5.15 MIL/uL (4.5-6.0)
[2021-12-24 02:01] LABS: ALBUMIN 3.2 g/dL (3.4-5.0); BILIRUBIN,DIRECT 0.1 mg/dL (0.0-0.2); BILIRUBIN,TOTAL 0.3 mg/dL (0.2-1.0); CALCIUM, SERUM 9.2 mg/dL (8.5-10.1); CREATININE 1.3 mg/dL (0.6-1.3); POTASSIUM 3.6 mmol/L (3.5-5.1); TOTAL PROTEIN, SERUM 7.4 g/dL (6.4-8.2)
--- NOTE | 2021-12-24 03:07 | NUR ---
COVID TEST SWABBED AND SENT TO LAB
[2021-12-24] MEDS ORDERED: DEXTROSE 50%-WATER 50 ML DISP.SYRIN IV PRN (06:30)
[2021-12-24] MEDS ORDERED: ACETAMINOPHEN 325 MG TABLET PO PRN (06:30)
[2021-12-24] MEDS ORDERED: HYDROCODONE/APAP 5/325MG TABLET PO PRN (06:30)
[2021-12-24] MEDS ORDERED: ONDANSETRON HCL/PF 4 MG/2 ML VIAL IVP PRN (06:30)
[2021-12-24] MEDS ORDERED: MULT-447 PO (07:53)
[2021-12-24] MEDS ORDERED: OMEG1CAP40 PO (07:53)
[2021-12-24] MEDS ORDERED: ERGO500093 PO (07:53)
--- NOTE | 2021-12-24 08:12 | NUR ---
PER PT, WAS TAKING AMOXICILLIN 250 Q8 HRS AT HOME.
--- NOTE | 2021-12-24 08:40 | NUR ---
room 309-1
--- NOTE | 2021-12-24 08:47 | NUR ---
REPORT GIVEN TO SAMUEL MELO FOR YONATAN
[2021-12-24] MEDS ORDERED: ENOXAPARIN SODIUM 40 MG/0.4 ML DISP.SYRIN SQ ONE (08:49)
[2021-12-24] MEDS: ENOXAPARIN SODIUM 40 MG/0.4 ML DISP.SYRIN SQ SCH (08:53)
--- NOTE | 2021-12-24 08:55 | NUR ---
PATIENT AAOX3, GIVEN BREAKFAST
[2021-12-24] MEDS: BLOOD SUGAR DIAGNOSTIC 1 EACH STRIP IN SCH ×4 (08:57→22:00)
[2021-12-24 09:00] VITALS: BP 146/86
[2021-12-24] MEDS ORDERED: VALSARTAN PO SCH (09:00)
[2021-12-24] MEDS ORDERED: AMLODIPINE PO SCH (09:00)
--- NOTE | 2021-12-24 09:00 | NUR ---
TRANSFERRED TO BED 309 IN STABLE CONDITION
--- NOTE | 2021-12-24 09:05 | NUR ---
RN MS NOTES RECEIVED PT FROM E.R. STAFF VIA CARROLL, PT IS AWAKE, ALERT AND ORIENTED, NO COMPLAINT OF PAIN, NOT IN DISTRESS, ROOM SET UP ORIENTATION PROVIDED, VERBALIZED UNDERSTANDING, ADMITTING ORDERS RECEIVED, NEEDS ATTENDED.
[2021-12-24] MEDS: AMLODIPINE BESYLATE 5 MG TABLET PO SCH (09:52)
[2021-12-24] MEDS: ASPIRIN 81 MG TAB.CHEW PO SCH (09:52)
[2021-12-24] MEDS: ATORVASTATIN 40 MG TABLET PO SCH (09:52)
[2021-12-24] MEDS: VALSARTAN 80 MG TABLET PO SCH (09:52)
--- NOTE | 2021-12-24 10:49 | NUR ---
RN MS NOTES SEEN AND EXAMINED BY DR. CONTRERAS, PLAN OF CARE DISCUSSED WITH PT, VERBALIZED UNDERSTANDING.
[2021-12-24] MEDS: VANCOMYCIN 1 GM in IV D5W 250ml IV SCH (14:58)
[2021-12-24 15:19] LABS: CHOLESTEROL 182 mg/dL (<200); HDL CHOLESTEROL 64 mg/dL (40-60); LDL 91 mg/dL (0-99); TRIGLYCERIDES 104 mg/dL (30-150)
[2021-12-24 16:00] VITALS: BP 156/78
--- NOTE | 2021-12-24 18:45 | NUR ---
RN CLOSING NOTES RECEIVED PT IN BED ASLEEP. AOx3-4 AND VERBALLY RESPONSIVE. PT ABLE TO MAKE NEEDS KNOWN. ON RA AND TOLERATING WELL. BREATHING EVEN AND UNLABORED. NO S/SX OF RESPIRATORY DISTRESS NOTED. PT HOB ELEVATED. IV ACCESS IN RAC #20, SALINE LOCK. PATENT, INTACT, AND FLUSING WELL. SAFETY PRECAUTIONS IN PLACE: BED IN LOWEST AND LOCKED POSITION, SIDERAILS UPx2. TABLE AND CALL LIGHT WITHIN REACH. WILL ENDORSE TO ROCKET SCIENTIST NURSE.
[2021-12-24 20:00] VITALS: BP 149/72
--- NOTE | 2021-12-24 20:00 | NUR ---
MS RN OPENING NOTES: RECEIVED PATIENT AWAKE IN BED BED IN LOW POSITION, CALL LIGHTS WITHIN REACH, NO COMPLAIN OF PAIN AND DISCOMFORT AT THIS TIME, PATIENT IS A/OX4 ABLE TO MAKE NEEDA KNOWN, AMBULATORY ON BRP WITH ASSISTANCE, WITH IV LINE AT RAC#20SL, ON ROOM AIR SATURATING WELL, PATIENT KEPT CLEAN AND DRY ALL NEEDS MET WILL CONTINUE TO MONITOR.
[2021-12-24] MEDS ORDERED: CEFTRIAXONE 2 G in IV D5W 100 ML IV SCH (22:00)
[2021-12-24] MEDS ORDERED: INSULIN GLARGINE, 100 UNIT/ML CARTRIDGE SQ SCH (22:00)
--- NOTE | 2021-12-24 22:07 | NUR ---
RN NOTES: BS-65 NO LONG ACTING INSULIN GIVEN PATIENT OFFERED ORANGE JUICE AND FOOD
[2021-12-24 22:35] VITALS: BP 149/72
[2021-12-24] MEDS ORDERED: CEFTRIAXONE 1 G VIAL ONE ×2 (22:45→22:46)
--- NOTE | 2021-12-24 22:45 | NUR ---
RN NOTES: ROCEPHINE GIVEN 2 GRAM GIVEN MEDICATION C/O CHARGE NURSE
--- NOTE | 2021-12-24 23:34 | NUR ---
RN NOTES: RECHECK BLOOD SUGAR INCREASE FROM 65 TO 104 WILL CONTINUE TO MONITOR.
[2021-12-25] MEDS: VANCOMYCIN 1 GM in IV D5W 250ml IV SCH ×2 (02:39→15:23)
--- NOTE | 2021-12-25 06:33 | NUR ---
RN CLOSING NOTES: PATIENT AWAKE IN BED, BED IN LOW POSITION, CALL LIGHTS WITHIN REACH, NO COMPLAIN OF PAIN AND DISCOMFORT AT THIS TIME, PATIENT IS A/OX4 ABLE TO MAKE NEEDS KNWN, ON ROOM AIR SATURATING WELL, NO SOB WAS OBSERVED, PATIENT KEPT CLEAN AND DRY ALL NEEDS MET ENDORSE TO INCOMING SHIFT.
[2021-12-25 06:45] LABS: BASOPHILS % (AUTO) 0.6 % (0.0-2.0); EOSINOPHILS % (AUTO) 4.4 % (0.0-6.0); HEMATOCRIT 39 % (39-51); HEMOGLOBIN 13.1 g/dL (13.5-17.5); LYMPHOCYTES # (AUTO) 1.9 K/uL (0.8-4.8); LYMPHOCYTES % (AUTO) 26.6 % (20.0-44.0); MEAN CORPUSCULAR HGB CONC 34 g/dl (31.0-36.0); MEAN CORPUSCULAR VOLUME 83 fL (80-96); MONOCYTES # (AUTO) 0.5 K/uL (0.1-1.30); MONOCYTES % (AUTO) 7.3 % (2.0-12.0); NEUTROPHILS # (AUTO) 4.4 K/uL (1.8-8.9); NEUTROPHILS % (AUTO) 61.1 % (43.0-81.0); PLATELET COUNT (AUTO) 276 K/uL (150-450); RED BLOOD CELL COUNT(AUTO) 4.71 MIL/uL (4.5-6.0); WHITE BLOOD COUNT (AUTO) 7.3 K/uL (4.3-11.0)
[2021-12-25] MEDS: INSULIN REGULAR, HUMAN 100 UNIT/ML 3 ML VIAL SQ PRN ×2 (06:47→13:26)
--- NOTE | 2021-12-25 07:30 | NUR ---
MS RN OPENING NOTES RECEIVED PATIENT SITTING ON BED AWAKE AND A/O X4. ABLE TO MAKE NEEDS KNOWN. ON ROOM AIR TOLERATING WELL. NO SOB NOTED. NOT IN DISTRESS. WITH NO COMPLAINTS OF PAIN OR DISCOMFORT AT THIS TIME. WITH IV ACCESS AT RIGHT AC G20 SALINE LOCKED, PATENT AND INTACT. SAFETY MEASURES IN PLACED. CALL LIGHT WITHIN REACH. BED ON LOWEST LOCKED POSITION, SIDE RAILS UP X2. WILL CONTINUE TO MONITOR.
[2021-12-25 07:54] LABS: CALCIUM, SERUM 8.6 mg/dL (8.5-10.1); CREATININE 1.1 mg/dL (0.6-1.3); MAGNESIUM 2.1 mg/dL (1.8-2.4); POTASSIUM 3.8 mmol/L (3.5-5.1)
[2021-12-25 08:00] VITALS: BP 153/78
[2021-12-25] MEDS: ENOXAPARIN SODIUM 40 MG/0.4 ML DISP.SYRIN SQ SCH (08:50)
[2021-12-25] MEDS: ATORVASTATIN 40 MG TABLET PO SCH (08:50)
[2021-12-25] MEDS: ASPIRIN 81 MG TAB.CHEW PO SCH (08:50)
[2021-12-25] MEDS: AMLODIPINE BESYLATE 5 MG TABLET PO SCH (08:51)
[2021-12-25] MEDS: VALSARTAN 80 MG TABLET PO SCH (08:51)
[2021-12-25] MEDS: BLOOD SUGAR DIAGNOSTIC 1 EACH STRIP IN SCH ×2 (08:52→11:52)
[2021-12-25 16:03] VITALS: BP 164/87
--- NOTE | 2021-12-25 17:00 | NUR ---
MS SUBCONTRACT MANAGER NOTES PATIENT WAS SEEN BY DR. CUI AND ORDERED PATIENT FOR DISCHARGE TO HOME. DISCHARGE INSTRUCTION AND EDUCATION PROVIDED TO THE PATIENT. HOME MEDICATION INSTRUCTION GIVEN TO THE PATIENT. DISCHARGE INSTRUCTION FORM AND BELONGINGS LIST FORM SIGNED BY THE PATIENT. ACCOMPANIED PATIENT TO THE [facility]. PATIENT LEFT IN STABLE CONDITION VIA TAXI. MD AND CHARGE NURSE ARE AWARE OF THE DISCHARGE.
--- NOTE | 2021-12-25 17:00 | NUR ---
RN NOTES REMOVED IV LINE AND NAME WRIST BAND.
== END 2021-12-25 17:10 | disposition home or self-care (01) | DRG 638 ==
LOC: ER 00:18 → TRANSITION 07:54 → MED 08:44
DX: E11.621 Type 2 diabetes mellitus with foot ulcer (principal); L03.116 Cellulitis of left lower limb; L97.529 Non-pressure chronic ulcer of other part of left foot with unspecified severity; E11.40 Type 2 diabetes mellitus with diabetic neuropathy, unspecified; E78.5 Hyperlipidemia, unspecified; I10 Essential (primary) hypertension; E11.622 Type 2 diabetes mellitus with other skin ulcer; E11.65 Type 2 diabetes mellitus with hyperglycemia; Z98.890 Other specified postprocedural states; Z20.822 Contact with and (suspected) exposure to COVID-19; Z79.4 Long term (current) use of insulin; Z79.82 Long term (current) use of aspirin; Z79.899 Other long term (current) drug therapy; Z89.422 Acquired absence of other left toe(s); E66.01 Morbid (severe) obesity due to excess calories; Z68.36 Body mass index [BMI] 36.0-36.9, adult; Z91.19 Patient's noncompliance with other medical treatment and regimen; F17.200 Nicotine dependence, unspecified, uncomplicated; I89.0 Lymphedema, not elsewhere classified; L97.519 Non-pressure chronic ulcer of other part of right foot with unspecified severity
CPT/HCPCS: 36415; 73630-TC; 80048-TC; 80061-TC; 80076-TC; 80202-TC; 82962-TC; 83605-TC; 83735-TC; 84100-TC; 85025-TC; 87040-TC; 87081-TC; A6403; C9803; G0378; J0696; J1650; J1815; J3370; J7050; J7060

== ENCOUNTER → 2022-01-03 | Emergency (ER) | payer SELFPAY ==
[~2022-01-03] VITALS: Ht 170.2 cm; Wt 103.4 kg
[~2022-01-03] MED LIST changes: +BACITRACIN ZINC OINT PACKET 1 EA PACKET TP ONE; +CEPH500C2 PO; +ERGO500093 PO; +FAMO-131 PO; -HYDR-3972 PO; +IV NS 0.9% 1,000 ML IV ONE; +MULT-447 PO; +OMEG1CAP40 PO; +ONDA4TAB5 PO; +ONDANSETRON HCL/PF 4 MG/2 ML VIAL IV ONE; +ONDANSETRON HCL/PF 4 MG/2 ML VIAL ONE; +SULF1TAB48 PO
[2022-01-03 13:09] LABS: BASOPHILS # (AUTO) 0.1 K/uL (0.0-0.2); BASOPHILS % (AUTO) 0.9 % (0.0-2.0); EOSINOPHILS % (AUTO) 2.1 % (0.0-6.0); HEMATOCRIT 47 % (39-51); HEMOGLOBIN 15.3 g/dL (13.5-17.5); LYMPHOCYTES # (AUTO) 2.3 K/uL (0.8-4.8); LYMPHOCYTES % (AUTO) 25.5 % (20.0-44.0); MEAN CORPUSCULAR HGB CONC 33 g/dl (31.0-36.0); MEAN CORPUSCULAR VOLUME 83 fL (80-96); MONOCYTES # (AUTO) 0.5 K/uL (0.1-1.30); MONOCYTES % (AUTO) 5.1 % (2.0-12.0); NEUTROPHILS # (AUTO) 5.9 K/uL (1.8-8.9); NEUTROPHILS % (AUTO) 66.4 % (43.0-81.0); PLATELET COUNT (AUTO) 303 K/uL (150-450); RED BLOOD CELL COUNT(AUTO) 5.62 MIL/uL (4.5-6.0); WHITE BLOOD COUNT (AUTO) 8.9 K/uL (4.3-11.0)
[2022-01-03 13:28] LABS: ALBUMIN 3.1 g/dL (3.4-5.0); BILIRUBIN,DIRECT 0.1 mg/dL (0.0-0.2); BILIRUBIN,TOTAL 0.4 mg/dL (0.2-1.0); CALCIUM, SERUM 9.3 mg/dL (8.5-10.1); CREATININE 1.2 mg/dL (0.6-1.3); POTASSIUM 3.6 mmol/L (3.5-5.1); TOTAL PROTEIN, SERUM 7.6 g/dL (6.4-8.2)
--- NOTE | 2022-01-03 13:30 | NUR ---
MONITORPT CAME IN C/O NAUSEA, LEFT FOOT WEAKNESS. PT IS A/O X3. CONNECTED TO MONITOR.
[2022-01-03 15:58] LABS: BILIRUBIN,URINE SMALL (NEGATIVE); COLOR,URINE YELLOW (YELLOW); LEUKOCYTE ESTERASE ,URINE NEGATIVE (NEGATIVE); NITRITE, URINE NEGATIVE (NEGATIVE); PROTEIN,URINE >=300 mg/dl (NEGATIVE); UGLUCOSE >=1000 mg/dL (NEGATIVE); UROBILINOGEN,URINE 0.2 EU/dL (0.2)
[2022-01-03 16:53] LABS: BACTERIA,URINE None seen /HPF (None Seen); RBC,URINE 21-50 /HPF (0-2); SQUAMOUS EPITHELIAL CELL,UR 0-2 /HPF (None Seen); WBC,URINE 0-2 /HPF (0-3)
[2022-01-03 16:54] LABS: MUCUS,URINE Few /LPF (None Seen)
[2022-01-03 16:59] VITALS: BP 142/79
--- NOTE | 2022-01-03 17:03 | NUR ---
Patient discharged to home in stable condition. Written and verbal after care instructions given. Patient verbalizes understanding of instruction.IV removed. Catheter intact and site benign. Pressure and 4x4 applied to site. No bleeding noted.
== END | disposition home or self-care (01) ==
LOC: ER 11:38
DX: R55 Syncope and collapse (principal); R14.0 Abdominal distension (gaseous); R11.0 Nausea; E11.40 Type 2 diabetes mellitus with diabetic neuropathy, unspecified; L03.116 Cellulitis of left lower limb; L03.115 Cellulitis of right lower limb; I10 Essential (primary) hypertension; Z79.4 Long term (current) use of insulin; Z79.82 Long term (current) use of aspirin; Z79.899 Other long term (current) drug therapy
CPT/HCPCS: 36415; 71045; 73630 ×2; 80048; 80076; 81001; 83690; 84484; 85025; 93005; 96361; 96374; 99285; J2405; J7030